=== PATIENT | female | born 2000 | race Caucasian/White ===

== ENCOUNTER 2020-08-22 23:50 | Emergency (ER) | payer OTHER, SELFPAY ==
[2020-08-23] VITALS: BP 127/72; PULSE 84; RESP 18; TEMP 36.4; O2SAT 100
--- NOTE | 2020-08-23 00:41 | PC.NURSE ---
pt states she doesn't want to wait anymore. this rn assured pt that we would get her back as soon as we possibly can if she wants to stay, pt still wants to leave. this rn informs pt that she can return if she needs to.
== END 2020-08-23 00:45 | disposition left against medical advice (07) ==
PROVIDERS: PCP Hospitalist
DX: S31.41XA Laceration without foreign body of vagina and vulva, initial encounter (principal)
CPT/HCPCS: 99199

== ENCOUNTER 2021-03-31 09:05 | Emergency (ER) | payer OTHER, MEDICAID, SELFPAY ==
[2021-03-31 09:13] VITALS: BP 140/69; PULSE 97; RESP 20; TEMP 37.1; O2SAT 98
--- NOTE | 2021-03-31 09:31 | ED.URI ---
HPI - URI/Sore Throat General Chief Complaint: Upper Respiratory Infection Stated Complaint: Sore Throat Time Seen by Provider: 03/31/21 09:32 Source: patient Mode of arrival: ambulatory Limitations: no limitations History of Present Illness HPI Narrative: patient presents with sore throat. no trouble swallowing and no drooling. Patient also complains of a headache and some nasal congestion. Patient was immunized for COVID-19 in October. 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 Patient went to work this morning and was instructed by her employer to come to [facility] to be tested for strep. and covid MD elicited complaint: sore throat, rhinorrhea and nasal congestion Related Data Allergies Allergy/AdvReac Type Severity Reaction Status Date / Time No Known Drug Allergies Allergy Unknown Verified 10/21/16 16:29 Review of Systems Review of Systems: Narrative: CONSTITUTIONAL: Denies chills, or sweats. Reports fever and generalized body aches EYES: Denies visual changes, redness, or discharge. ENT: Denies otalgia. Reports nasal congestion runny nose and sore throat CARDIOVASCULAR: Denies chest pain, palpitations, or edema. RESPIRATORY: Denies dyspnea. Reports occasional cough GASTROINTESTINAL: Denies abdominal pain, nausea, vomiting, or diarrhea. GENITOURINARY: Denies dysuria or hematuria. SKIN: Denies rash or itching. MUSCULOSKELETAL: Denies back pain, joint pain, or myalgia. Reports generalized body aches NEUROLOGIC: Denies headache, numbness, or weakness. PSYCHIATRIC: Denies anxiety or depression. [facility] Social History Social History Gender identity (if verbalized by the patient): Female Comments At time of signature, agree with nursing past medical, surgical, social and family history. There is no relevant family history pertinent to the presenting complaint Exam Narrative: Exam Narrative: The patient is a well-developed, well-nourished in no acute distress. SKIN: Skin is warm and dry without erythema, swelling or exudate. There is good turgor. No tenting. HEAD: Atraumatic. Normocephalic. No temporal or scalp tenderness. EYES: Moist and bright. Sclera and conjunctivae normal. No discharge. PERRLA. Extraocular motions intact. Gross visual acuity intact. EARS: Pinna is normal shape and contour. Clear external auditory canals. TM pearly grace with good cone of light, no erythema or suppuration. Bilateral cerumen noted no gross hearing deficit. NOSE: pink, moist mucosa with good air movement. Clear rhinorrhea without nasal flaring. Septum midline. Mouth: moist mucous membranes. THROAT; mild erythema noted to posterior oropharynx with moderate postnasal drainage. Without exudate or ulceration.. Uvula midline. Normal movement of soft palate. NECK: Supple and nontender with full range of motion without discomfort. No meningeal signs. LUNGS: Equal and bilateral breath sounds without wheezes, rales or rhonchi. CHEST: The chest wall is without retractions or use of accessory muscles. HEART: Has a regular rate and rhythm without murmur, gallops, click or rub. ABDOMEN: Soft, nontender with positive active bowel sounds. No rebound tenderness. EXTREMITIES: Without cyanosis, clubbing or edema. Equal 2+ distal pulses and 2 second capillary refill noted. NEUROLOGIC: alert, active, . The patient moves all extremities with normal muscle strength. Normal muscle tone is noted. Normal coordination is noted. NO focal neurological findings noted. Course Vital Signs Vital signs: Vital Signs Temperature 37.1 C 03/31/21 09:13 Pulse Rate 97 03/31/21 09:13 Respiratory Rate 20 03/31/21 09:13 Blood Pressure 140/69 03/31/21 09:13 Pulse Oximetry 98 03/31/21 09:13 Temperature 37.1 C 03/31/21 09:13 Pulse Rate 97 03/31/21 09:13 Respiratory Rate 20 03/31/21 09:13 Blood Pressure 140/69 03/31/21 09:13 Pulse Oximetry 98 03/31/21 09:13 Please RAINA schedule a followup visit with your personal physician for further ev
== END 2021-03-31 10:05 | disposition home or self-care (01) ==
PROVIDERS: Emergency Provider Nurse Practitioner Family; PCP Hospitalist
DX: J06.9 Acute upper respiratory infection, unspecified (principal); Z20.822 Contact with and (suspected) exposure to COVID-19; K21.9 Gastro-esophageal reflux disease without esophagitis
CPT/HCPCS: 87081; 87426; 87880; 99213; C9803; G0463

== ENCOUNTER 2021-08-04 12:55 | Emergency (ER) | payer OTHER, BC, SELFPAY ==
[2021-08-04 13:15] VITALS: BP 123/72; PULSE 93; RESP 16; TEMP 36.6; O2SAT 100
--- NOTE | 2021-08-04 13:35 | ED.URI ---
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 No fever measured, significant cough, loss of taste/smell, CP, vomiting/diarrhea, S OB, rash. Symptoms mild mild worse upon awakening the morning Related Data Home Medications Medication Instructions Recorded Confirmed Hydroxyzine Compound 08/04/21 sertraline 100 mg PO DAILY 08/04/21 08/04/21 Allergies Allergy/AdvReac Type Severity Reaction Status Date / Time No Known Drug Allergies Allergy Unknown Verified 10/21/16 16:29 Review of Systems Review of Systems: General/Constitutional: No weight loss,fever Eyes: N0: Redness,discharge Ears/Nose/Throat: No: Epistaxis,ear discharge Respiratory: Denies: Hemoptysis Gastrointestinal: No Vomiting, Bleeding-rectal Skin: No Lumps, eruption Neurologic: No Focal Weakness,Sz Hematologic: Denies: Petechiae/Purpura Psychiatric: No: Suicida ideationl All Other Systems: Reviewed and Negative PMFSH Social History Social History Gender identity (if verbalized by the patient): Female Comments At time of signature, agree with nursing past medical, surgical, social and family history. There is no relevant family history pertinent to the presenting complaint Exam Narrative: General Appearance: Well appearing, Well nourished EYE: PERRLA, Conjunctiva clear Ears: Auditory canal normal, TM normal Nose: Rhinorrhea, Mucousal erythema Mouth/Throat: MM moist, Uvula midline, Pharyngeal erythema Neck: Supple, No adenopathy Respiratory: No respiratory distress, Breath sounds equal, Clear to auscultation Cardiovascular: RRR, No JVD Musculoskeletal: Non tender, Normal strength Skin: Warm, Dry Neurological: A&O x3, CN II-XII intact Psychiatric: Normal mood, Normal affect Course Vital Signs Vital signs: Vital Signs Temperature 98 F 08/04/21 13:15 Pulse Rate 93 08/04/21 13:15 Respiratory Rate 16 08/04/21 13:15 Blood Pressure 123/72 08/04/21 13:15 Pulse Oximetry 100 08/04/21 13:15 Temperature 98 F 08/04/21 13:15 Pulse Rate 93 08/04/21 13:15 Respiratory Rate 16 08/04/21 13:15 Blood Pressure 123/72 08/04/21 13:15 Pulse Oximetry 100 08/04/21 13:15 Discharge Plan Discharge Clinical Impression: Sinus headache Patient Disposition: Home, Self-Care Condition: Stable Instructions: Antibiotic Form Additional Instructions: You may continue OTC preparations like Flonase, honey-based cough syrups, etc. Prescriptions: New azithromycin 250 mg tablet See Rx Instructions .ROUTE .COMPLEX Qty: 6 RF: 0 benzonatate [Tessalon Perles] 100 mg capsule 100 mg PO TID Qty: 20 RF: 1 azelastine 137 mcg (0.1 %) aerosol,spray 137 mcg NASAL Q12H Qty: 30 RF: 0 No Action fluticasone propionate [Flonase Allergy Relief] 50 mcg/actuation spray,suspension 2 spray NASAL BID Qty: 9.9 RF: 0 sertraline 100 mg tablet 100 mg PO DAILY RF: 0 Hydroxyzine Compound RF: 0 Follow-up/Referrals: Jcarlos,MD Sohail [Primary Care Provider] - Stand Alone Forms: Work/School Release IP
== END 2021-08-04 13:52 | disposition home or self-care (01) ==
PROVIDERS: Emergency Provider Emergency Medicine; PCP Hospitalist
DX: R51.9 Headache, unspecified (principal); K21.9 Gastro-esophageal reflux disease without esophagitis; F41.9 Anxiety disorder, unspecified; F32.A Depression, unspecified; F12.20 Cannabis dependence, uncomplicated
CPT/HCPCS: 99213; G0463

== ENCOUNTER 2022-04-04 16:03 | Emergency (ER) | payer OTHER, SELFPAY ==
--- NOTE | ~2022-04-04 | XR_ITS ---
EXAMINATION: XR wrist RT min 3V INDICATION: Right wrist pain, initial encounter TECHNIQUE: Four views of the right wrist are obtained. COMPARISON: None available FINDINGS: There is a subtle triangular ossification projecting dorsal to the distal carpal row on the lateral view. There is soft tissue swelling of the wrist. IMPRESSION: 1. Probable dorsal fracture of the distal carpal row seen on the lateral view. Reviewed, dictated and finalized at location A.
[2022-04-04 16:15] VITALS: BP 124/80; PULSE 94; RESP 16; TEMP 36.9; O2SAT 99
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
== END 2022-04-04 17:55 | disposition home or self-care (01) ==
PROVIDERS: Emergency Provider Registered Nurse; PCP Hospitalist
DX: S62.101A Fracture of unspecified carpal bone, right wrist, initial encounter for closed fracture (principal); V43.52XA Car driver injured in collision with other type car in traffic accident, initial encounter; K21.9 Gastro-esophageal reflux disease without esophagitis; F41.9 Anxiety disorder, unspecified; F32.A Depression, unspecified
CPT/HCPCS: 29125; 73110; 99214; G0463

== ENCOUNTER 2022-11-09 08:43 | Emergency (ER) | payer OTHER, SELFPAY ==
[2022-11-09 08:56] VITALS: BP 130/70; PULSE 86; RESP 16; TEMP 36.8; O2SAT 98
--- NOTE | 2022-11-09 09:25 | ED.SKABFB ---
HPI - Skin/Abscess/Foreign Bdy General Chief complaint: Skin/Abscess/Foreign Body Stated complaint: rash on back of neck Time Seen by Provider: 11/09/22 09:25 Source: patient Mode of arrival: ambulatory Limitations: no limitations History of Present Illness HPI narrative: 22 y/o female presented for c/o red itchy rash to the back of neck, right side of of face and right forearm spreading over the past few days. States it is bumpy, nontender. Denies change to lotions, soap, detergent or meds etc. Reports sensitivity to chemicals/detergents and makes her own detergents at home for 2 years. Applying benadryl cream to site and took Benadryl yesterday. Denies sob, wheezing, lip/tongue or throat swelling or itching. Denies n/v/d/f/c. Related Data Home Medications Medication Instructions Recorded Confirmed sertraline 100 mg tablet 200 mg PO DAILY 08/04/21 11/09/22 linaclotide 72 mcg capsule 72 mcg PO DAILY 11/09/22 11/09/22 (Linzess) Allergies Allergy/AdvReac Type Severity Reaction Status Date / Time No Known Drug Allergies Allergy Unknown Unknown Verified 11/09/22 09:08 Review of Systems Review of Systems: CONSTITUTIONAL: Denies body aches, fever, chills, or sweats. EYES: Denies visual changes, redness, or discharge. ENT: Denies rhinorrhea, congestion CARDIOVASCULAR: Denies chest pain, palpitations, or edema. RESPIRATORY: Denies cough or dyspnea. GASTROINTESTINAL: Denies abdominal pain, nausea, vomiting, or diarrhea. SKIN: per HPI MUSCULOSKELETAL: Denies back pain, joint pain, or myalgia. NEUROLOGIC: Denies headache, numbness, tingling, or weakness. [facility] Past Medical History Medical History Anxiety and depression Fx clavicle surgical repair GERD (gastroesophageal reflux disease) Surgical History Surgical History Hx of shoulder surgery Left S/P tendon repair left foot Social History Social History Smoking status: Never smoker Alcohol intake: current Alcohol use details: social Substance use type: does not use Living arrangements: with family Gender identity (if verbalized by the patient): Female Comments At time of signature, I have reviewed and agree with nursing past medical, surgical, social and family history unless otherwise noted. Please see nursing chart for further information. There is no relevant family history pertinent to the presenting complaint Exam Narrative: GENERAL: Well-appearing HEAD: Normocephalic, atraumatic. EYES: conjunctivae clear, and EOMI. ENT: Mucous membranes moist. Oropharynx without edema, erythema or lesions. NECK: Supple. No lymphadenopathy CHEST: Clear to auscultation. HEART: Regular rate and rhythm. SKIN: Warm, dry. Erythematous papular lesions to posterior neck, right face and right forearm, c/w contact dermatitis; no apparent vesicles or pain with palpation. NEURO: Alert and oriented x3. Course Course Emergency Course: Patient is aware of diagnosis, understands and agrees to treatment plan. Anticipatory guidance given. Patient agrees to follow-up as directed and is aware of reasons to seek care at the emergency department. Portions of this record may have been created with voice recognition software Level of Care: Express Care Visit Vital Signs Vital signs: Vital Signs Temperature 98.2 F 11/09/22 08:56 Pulse Rate 86 11/09/22 08:56 Respiratory Rate 16 11/09/22 08:56 Blood Pressure 130/70 11/09/22 08:56 Pulse Oximetry 98 11/09/22 08:56 Oxygen Delivery Room Air 11/09/22 08:56 Temperature 98.2 F 11/09/22 08:56 Pulse Rate 86 11/09/22 08:56 Respiratory Rate 16 11/09/22 08:56 Blood Pressure 130/70 11/09/22 08:56 Pulse Oximetry 98 11/09/22 08:56 Oxygen Delivery Room Air 11/09/22 08:56 Reviewed MDM - Skin/Abscess/Foreign
--- NOTE | 2022-11-10 11:32 | ED.SKABFB ---
HPI - Skin/Abscess/Foreign Bdy General Chief complaint: Skin/Abscess/Foreign Body Stated complaint: rash on back of neck Time Seen by Provider: 11/09/22 09:25 Source: patient Mode of arrival: ambulatory Limitations: no limitations History of Present Illness HPI narrative: 22 y/o female presented for c/o rash starting on posterior neck, spreading to right side of face and right forearm over the last 2 days. Reports itching, denies pain or drainage. Denies changes to lotions, soap, detergent or meds. States she has been making her own detergent for 2 years due to skin sensitivity. Using benadryl cream and took benadryl last night. Denies sob, wheezing, lip or tongue swelling, throat swelling or itching. Related Data Home Medications Medication Instructions Recorded Confirmed sertraline 100 mg tablet 200 mg PO DAILY 08/04/21 11/09/22 linaclotide 72 mcg capsule 72 mcg PO DAILY 11/09/22 11/09/22 (Linzess) Allergies Allergy/AdvReac Type Severity Reaction Status Date / Time No Known Drug Allergies Allergy Unknown Unknown Verified 11/09/22 09:08 Review of Systems Review of Systems: CONSTITUTIONAL: Denies body aches, fever, chills, or sweats. EYES: Denies visual changes, redness, or discharge. ENT: Denies rhinorrhea, congestion CARDIOVASCULAR: Denies chest pain, palpitations, or edema. RESPIRATORY: Denies cough or dyspnea. GASTROINTESTINAL: Denies abdominal pain, nausea, vomiting, or diarrhea. SKIN: per HPI MUSCULOSKELETAL: Denies back pain, joint pain, or myalgia. NEUROLOGIC: Denies headache, numbness, tingling, or weakness. [facility] Past Medical History Medical History Anxiety and depression Fx clavicle surgical repair GERD (gastroesophageal reflux disease) Surgical History Surgical History Hx of shoulder surgery Left S/P tendon repair left foot Social History Social History Smoking status: Never smoker Alcohol intake: current Alcohol use details: social Substance use type: does not use Living arrangements: with family Gender identity (if verbalized by the patient): Female Comments At time of signature, I have reviewed and agree with nursing past medical, surgical, social and family history unless otherwise noted. Please see nursing chart for further information. There is no relevant family history pertinent to the presenting complaint Exam Narrative: GENERAL: Well-appearing HEAD: Normocephalic, atraumatic. EYES: conjunctivae clear, and EOMI. ENT: Mucous membranes moist. Oropharynx without edema, erythema or lesions. NECK: Supple. No lymphadenopathy CHEST: Clear to auscultation. HEART: Regular rate and rhythm. SKIN: Warm, dry. Erythematous papular rash to posterior neck, right side of face and right distal forearm c/w contact dermatitis; nontender lesions no drainage NEURO: Alert and oriented x3. Course Course Emergency Course: Patient is aware of diagnosis, understands and agrees to treatment plan. Anticipatory guidance given. Patient agrees to follow-up as directed and is aware of reasons to seek care at the emergency department. Portions of this record may have been created with voice recognition software Level of Care: Express Care Visit Vital Signs Vital signs: Vital Signs Temperature 98.2 F 11/09/22 08:56 Pulse Rate 86 11/09/22 08:56 Respiratory Rate 16 11/09/22 08:56 Blood Pressure 130/70 11/09/22 08:56 Pulse Oximetry 98 11/09/22 08:56 Oxygen Delivery Room Air 11/09/22 08:56 Temperature 98.2 F 11/09/22 08:56 Pulse Rate 86 11/09/22 08:56 Respiratory Rate 16 11/09/22 08:56 Blood Pressure 130/70 11/09/22 08:56 Pulse Oximetry 98 11/09/22 08:56 Oxygen Delivery Room Air 11/09/22 08:56 Reviewed MDM - Skin/Abscess/Foreign Bdy MDM Narrative Medical d
== END 2022-11-09 09:40 | disposition home or self-care (01) ==
PROVIDERS: Emergency Provider Nurse Practitioner Family; PCP Hospitalist
DX: L30.9 Dermatitis, unspecified (principal); F41.9 Anxiety disorder, unspecified; F32.A Depression, unspecified; K21.9 Gastro-esophageal reflux disease without esophagitis
CPT/HCPCS: 99213; G0463

== ENCOUNTER 2023-02-07 11:57 | Outpatient (CLI) | payer OTHER, MEDICAID, SELFPAY ==
--- NOTE | ~2023-02-07 | XR_ITS ---
EXAMINATION: XR abdomen/kub 1V DATE: 02/07/2023 12:08 INDICATION: Constipation, unspecified. TECHNIQUE: A supine view of the abdomen on 2 radiographs was obtained. COMPARISON: None. FINDINGS: There are no dilated loops of bowel. There is a moderate volume of stool in the colon. IMPRESSION: 1. Nonobstructive bowel gas pattern. Reviewed, dictated and finalized at location A.
== END 2023-02-07 11:58 | disposition home or self-care (01) ==
LOC: ANHBWCIMG 11:58
PROVIDERS: PCP Family Medicine; Visit Provider Nurse Practitioner
DX: K59.00 Constipation, unspecified (principal)
CPT/HCPCS: 74018

== ENCOUNTER 2023-02-09 09:33 | Emergency (ER) | payer OTHER, MEDICAID, SELFPAY ==
--- NOTE | ~2023-02-09 | XR_ITS ---
EXAMINATION: XR abdomen obstructive series DATE: 02/09/2023 10:30 INDICATION: Constipation. TECHNIQUE: Upright and supine views of the abdomen were obtained. COMPARISON: Abdomen radiographs 02/07/2023 FINDINGS: There are no dilated loops of bowel. There is a moderate volume of stool in the colon. No f ree intraperitoneal gas. IMPRESSION: 1. Nonobstructive bowel gas pattern. Reviewed, dictated and finalized at location A.
[2023-02-09 09:42] VITALS: BP 129/76; PULSE 86; RESP 16; TEMP 36.4; O2SAT 99
--- NOTE | 2023-02-09 10:00 | ED.GENADULT ---
HPI - General Adult General Chief complaint: Unspecified Stated complaint: CONSTIPATION Time Seen by Provider: 02/09/23 09:50 History of Present Illness HPI narrative: Patient is a 22-year-old female here for evaluation of constipation x12 days. Patient states that she has a history of IBS-C has dealt with constipation her entire adult life, but states she has never gone this long without having a bowel movement. She had small pebble-like stools past this morning but she still feels full and uncomfortable. She denies any pain in her abdomen, nausea, vomiting, fevers or chills. She saw her primary care doctor 3 days ago, had x-rays that were negative. Related Data Home Medications Medication Instructions Recorded Confirmed sertraline 100 mg tablet 200 mg PO DAILY 08/04/21 02/07/23 Hydroxyzine BYMOUTH 12/21/22 02/07/23 Allergies Allergy/AdvReac Type Severity Reaction Status Date / Time No Known Drug Allergies Allergy Unknown Unknown Verified 02/09/23 09:33 Review of Systems Review of Systems: Gen.: Denies fevers or chills Eyes: Denies eye pain or visual change ENT: Denies congestion Respiratory: Denies shortness of breath or cough CV: Denies chest pain or palpitations GI: Reports constipation. Denies abdominal pain nausea, emesis or diarrhea denies burning, urgency, frequency or hematuria Musculoskeletal: Denies back pain or muscle pain Neuro: Denies numbness, tingling, weakness or focal weakness Skin: Denies rash Except as documented, all other systems reviewed and negative PMF Past Medical History Medical History Anxiety and depression Fx clavicle surgical repair GERD (gastroesophageal reflux disease) Surgical History Surgical History Hx of shoulder surgery Left S/P tendon repair left foot Family History Family History Father History of ETOH abuse Depression Mother History of ETOH abuse Depression Diabetes mellitus Sibling Depression Grandparent Diabetes mellitus Depression Grandparent History of ETOH abuse Depression Social History Social History Smoking status: Never smoker Alcohol intake: current Alcohol use details: social Substance use type: does not use Lack of Transportation: No Lack of Food: Never True Current Housing: I Have Housing Concerned About Future Housing: No Difficulty Paying Gas/Electric Bills: No Difficulty Paying for Meds: No Currently Unemployed: No Education: High School Diploma/GED Difficulty w/ Childcare or Family Care: No Living arrangements: with family Occupation/Education: occupation 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 Head: Normocephalic and atraumatic. EYES: PERRLA/EOMI, conjunctivae clear NOSE: No nasal drainage EARS: External ear normal in appearance THROAT: Oropharynx is clear. Mucous membranes are moist. NECK: Supple. No adenopathy, no masses. RESPIRATORY: Airway patent, respirations nonlabored. Clear to auscultation bilaterally, no rales, rhonchi, wheezing. CARDIOVASCULAR: Regular rate and rhythm without murmurs, rubs, or gallops. ABDOMINAL: Normoactive bowel sounds. Soft, nontender, nondistended. No rebound tenderness or guarding. : There is a anal fissure at the 3 o'clock position that is bleeding bright red blood. MUSCULOSKELETAL: Extremities are warm and well-perfused. Moves all extremities well. No edema. NEURO: Normal speech. No focal neurologic deficits. SKIN: Skin is warm and dry. No rashes. PSYCHIATRIC: Normal affect/mood.. Course Vital Signs Vi
[2023-02-09] MEDS: polyethylene glycoL 3350 17 GM POWD.PACK PO (10:25)
[2023-02-09] MEDS: MAGNESIUM HYDROXIDE SUSP 30 ML UDC PO (10:25)
[2023-02-09] MEDS: BISACODYL 10 MG SUPPOSITORY RECTAL (10:25)
== END 2023-02-09 11:28 | disposition home or self-care (01) ==
PROVIDERS: Emergency Provider Physician Assistant; PCP Family Medicine
DX: K58.1 Irritable bowel syndrome with constipation (principal); F41.9 Anxiety disorder, unspecified; F32.A Depression, unspecified; K21.9 Gastro-esophageal reflux disease without esophagitis
CPT/HCPCS: 74019; 81025; 99283; A9270

== ENCOUNTER 2023-02-22 08:12 | Outpatient (CLI) | payer OTHER, MEDICAID, SELFPAY ==
[2023-02-22 19:35] LABS: Hematocrit 41.8 % (37.0-47.0); Hemoglobin 13.6 g/dL (12.0-15.0); Mean Corpuscular HGB Conc 32.5 g/dl (32-36); Mean Corpuscular Hemoglobin 31.1 pg (26-34); Mean Corpuscular Volume 95.4 fl (80-100); Mean Platelet Volume 11.5 fl (7.4-10.4); Platelet Count Result 215 k/mm3 (150-375); Red Blood Count 4.38 M/mm3 (4.2-5.4); Red Cell Distribution Width 13.3 % (11.5-14.5); White Blood Count 6.2 K/mm3 (4.5-10.0)
[2023-02-22 20:16] LABS: Erythrocyte Sedimentation Rate 15 mm/hr (0-20)
[2023-02-22 20:35] LABS: Alanine Aminotransferase 18 U/L (6-35); Albumin Level 4.1 g/dL (3.5-5.1); Alkaline Phosphatase 53 U/L (38-126); Anion Gap 5 mmol/L (8-16); Aspartate Amino Transferase 44 U/L (14-36); Bilirubin,Total 0.5 mg/dL (0.2-1.3); Blood Urea Nitrogen 9 mg/dL (7-17); Calcium 8.9 mg/dL (8.4-10.2); Carbon Dioxide 28 mmol/L (22-30); Chloride 106 mmol/L (98-107); Cholesterol 190 mg/dL (0-200); Estimated Glomerular Filt Rate > 60; Glucose 79 mg/dL (65-110); HDL Direct 40 mg/dL; Sodium 139 mmol/L (137-145); Triglycerides 92 mg/dL (<150)
[2023-02-22 20:37] LABS: CRP 0.6 mg/dL (<1.0)
[2023-02-22 20:46] LABS: LDL Cholesterol Direct 121 mg/dL
== END 2023-02-22 08:13 | disposition home or self-care (01) ==
PROVIDERS: Nurse Practitioner; PCP Family Medicine; Visit Provider Family Medicine
DX: Z00.00 Encounter for general adult medical examination without abnormal findings (principal); K59.00 Constipation, unspecified; T78.40XA Allergy, unspecified, initial encounter
CPT/HCPCS: 36415; 80053; 80061; 85027; 85652; 86038; 86140

== ENCOUNTER 2023-06-28 15:21 | Outpatient (CLI) | payer OTHER, MEDICAID, SELFPAY ==
--- NOTE | ~2023-06-28 | XR_ITS ---
XR_[id number] DATE: 06/28/2023 15:28 INDICATION: Infrapatellar right knee pain for 3 days. Fall. TECHNIQUE: AP and lateral views COMPARISON: None FINDINGS: Mild suprapatellar knee joint effusion is not excluded. No fracture or dislocation, periosteal reaction or bone destruction, radiopaque intra-articular loose body or, calcinosis. Joint spaces appear well preserved. IMPRESSION: Cannot exclude mild suprapatellar knee joint effusion; otherwise unremarkable examination Reviewed, dictated and finalized at [facility]. Reviewed, dictated and finalized at location [facility]. IMPRESSION: Cannot exclude mild suprapatellar knee joint effusion; otherwise un remarkable examination
== END 2023-06-28 15:22 | disposition home or self-care (01) ==
LOC: ANHBWCIMG 15:23
PROVIDERS: PCP Nurse Practitioner Adult Health; Visit Provider Nurse Practitioner Adult Health
DX: M25.561 Pain in right knee (principal)
CPT/HCPCS: 73560

== ENCOUNTER 2023-09-17 13:41 | Emergency (ER) | payer OTHER, MEDICAID, SELFPAY ==
[2023-09-17 13:48] VITALS: BP 141/74; PULSE 122; RESP 18; TEMP 36.9; O2SAT 97
--- NOTE | 2023-09-17 14:13 | ED.URI ---
HPI - URI/Sore Throat General Chief Complaint: Upper Respiratory Infection Stated Complaint: Sore Throat/Ear Pain/Cough History of Present Illness HPI Narrative: PATIENT PRESENTS WITH FEVER GENERALIZED BODY ACHES. PATIENT REPORTS SORE THROAT DENIES ANY TROUBLE SWALLOWING NO DROOLING. PATIENT DID A HOME COVID TEST LAST WEEK WHICH WAS NEGATIVE. Related Data Home Medications Medication Instructions Recorded Confirmed linaclotide 145 mcg capsule 145 mcg PO DAILY 09/17/23 09/17/23 (Linzess) Allergies Allergy/AdvReac Type Severity Reaction Status Date / Time No Known Drug Allergies Allergy Unknown Unknown Verified 09/17/23 14:17 Review of Systems Review of Systems: CONSTITUTIONAL: DENIES CHILLS, OR SWEATS. REPORTS FEVER AND GENERALIZED BODY ACHES EYES: DENIES VISUAL CHANGES, REDNESS, OR DISCHARGE. ENT: DENIES OTALGIA. REPORTS NASAL CONGESTION RUNNY NOSE AND SORE THROAT CARDIOVASCULAR: DENIES CHEST PAIN, PALPITATIONS, OR EDEMA. RESPIRATORY: DENIES DYSPNEA. REPORTS OCCASIONAL COUGH GASTROINTESTINAL: DENIES ABDOMINAL PAIN, NAUSEA, VOMITING, OR DIARRHEA. GENITOURINARY: DENIES DYSURIA OR HEMATURIA. SKIN: DENIES RASH OR ITCHING. MUSCULOSKELETAL: DENIES BACK PAIN, JOINT PAIN, OR MYALGIA. REPORTS GENERALIZED BODY ACHES NEUROLOGIC: DENIES HEADACHE, NUMBNESS, OR WEAKNESS. PSYCHIATRIC: DENIES ANXIETY OR DEPRESSION. [facility]LY [facility] Past Medical History Medical History Anxiety and depression Fx clavicle surgical repair GERD (gastroesophageal reflux disease) Surgical History Surgical History Hx of shoulder surgery Left S/P tendon repair left foot Family History Family History Father History of ETOH abuse Depression Mother History of ETOH abuse Depression Diabetes mellitus Sibling Depression Grandparent Diabetes mellitus Depression Grandparent History of ETOH abuse Depression Social History Social History Smoking status: Never smoker Alcohol intake: current Alcohol use details: social Substance use type: does not use Lack of Transportation: No Lack of Food: Never True Current Housing: I Have Housing Concerned About Future Housing: No Difficulty Paying Gas/Electric Bills: No Difficulty Paying for Meds: No Currently Unemployed: No Education: High School Diploma/GED Difficulty w/ Childcare or Family Care: No Living arrangements: with family Occupation/Education: occupation 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 THERE IS NO RELEVANT FAMILY HISTORY PERTINENT TO THE PRESENTING COMPLAINT Exam Narrative: THE PATIENT IS A WELL-DEVELOPED, WELL-NOURISHED IN NO ACUTE DISTRESS. SKIN: SKIN IS WARM AND DRY WITHOUT ERYTHEMA, SWELLING OR EXUDATE. THERE IS GOOD TURGOR. NO TENTING. HEAD: ATRAUMATIC. NORMOCEPHALIC. NO TEMPORAL OR SCALP TENDERNESS. EYES: MOIST AND BRIGHT. SCLERA AND CONJUNCTIVAE NORMAL. NO DISCHARGE. PERRLA. EXTRAOCULAR MOTIONS INTACT. GROSS VISUAL ACUITY INTACT. EARS: PINNA IS NORMAL SHAPE AND CONTOUR. CLEAR EXTERNAL AUDITORY CANALS. TM PEARLY WILSON WITH GOOD CONE OF LIGHT, NO ERYTHEMA OR SUPPURATION. BILATERAL CERUMEN NOTED NO GROSS HEARING DEFICIT. NOSE: PINK, MOIST MUCOSA WITH GOOD AIR MOVEMENT. CLEAR RHINORRHEA WITHOUT NASAL FLARING. SEPTUM MIDLINE. MOUTH: MOIST MUCOUS MEMBRANES. THROAT; MILD ERYTHEMA NOTED TO POSTERIOR OROPHARYNX WITH MODERATE POSTNASAL DRAINAGE. WITHOUT EXUDATE OR ULCERATION.. UVULA MIDLINE. NORMAL MOVEMENT OF SOFT PALATE. NECK: SUPPLE AND NONTENDER WITH FULL RANGE OF MOTION WITHOUT DISCOMFORT. N
== END 2023-09-17 14:25 | disposition home or self-care (01) ==
PROVIDERS: Emergency Provider Nurse Practitioner Family; PCP Family Medicine
DX: J10.1 Influenza due to other identified influenza virus with other respiratory manifestations (principal); B34.9 Viral infection, unspecified; Z20.822 Contact with and (suspected) exposure to COVID-19; K21.9 Gastro-esophageal reflux disease without esophagitis; F41.9 Anxiety disorder, unspecified; F32.A Depression, unspecified
CPT/HCPCS: 87081; 87426; 87804; 87880; 99213; C9803; G0463

== ENCOUNTER 2024-01-18 15:02 | Outpatient (CLI) | payer BC, OTHER, SELFPAY ==
[2024-01-18 18:38] LABS: Hematocrit 41.2 % (37.0-47.0); Hemoglobin 13.7 g/dL (12.0-15.0); Mean Corpuscular HGB Conc 33.3 g/dl (32-36); Mean Corpuscular Hemoglobin 30.9 pg (26-34); Mean Platelet Volume 11.3 fl (7.4-10.4); Platelet Count Result 227 k/mm3 (150-375); Red Blood Count 4.43 M/mm3 (4.2-5.4); Red Cell Distribution Width 12.5 % (11.5-14.5); White Blood Count 8.3 K/mm3 (4.5-10.0)
[2024-01-18 19:23] LABS: Alanine Aminotransferase 19 U/L (6-35); Albumin Level 4.5 g/dL (3.5-5.1); Alkaline Phosphatase 63 U/L (38-126); Anion Gap 6 mmol/L (4-12); Aspartate Amino Transferase 33 U/L (14-36); Bilirubin,Total 0.5 mg/dL (0.2-1.3); Blood Urea Nitrogen 8 mg/dL (7-17); Calcium 9.7 mg/dL (8.4-10.2); Carbon Dioxide 29 mmol/L (22-30); Chloride 103 mmol/L (98-107); Estimated Glomerular Filt Rate > 60; Glucose 82 mg/dL (65-110); Potassium 4.2 mmol/L (3.4-5.0); Sodium 138 mmol/L (137-145)
[2024-01-18 20:05] LABS: Free T4 Free Thyroxine 1.01 ng/mL (0.78-2.19)
[2024-01-18 22:02] LABS: Hemoglobin A1C 4.9 % (<5.7)
== END 2024-01-18 15:03 | disposition home or self-care (01) ==
PROVIDERS: PCP Nurse Practitioner Adult Health; Visit Provider Nurse Practitioner Adult Health
DX: R42 Dizziness and giddiness (principal); R63.1 Polydipsia
CPT/HCPCS: 36415; 80053; 83036; 84439; 84443; 85027

== ENCOUNTER 2025-06-30 15:30 | Outpatient (CLI) | payer BC, OTHER, SELFPAY ==
--- OUTSIDE RECORDS SUMMARY | 2025-06-30 15:36 | XMS_ITS | Clinical Summary ---
Author Organization [facility] Address [address], [place] [address] Phone Care Team Providers Care Valet Cashier Name Role Phone Fabian Tucker DPM Unavailable [phone] Sohail Garber MD Primary Care Provider [phone] Allergies No known active allergies Medications melatonin 3 MG Tablet Take 10 mg by mouth nightly. Active hydrOXYzine (ATARAX) 25 MG Tablet Take 25 mg by mouth 2 times daily. 0 Active cetirizine (ZyrTEC Allergy) 10 MG Tablet Take 10 mg by mouth daily. Active sertraline (ZOLOFT) 100 MG Tablet Take 100 mg by mouth daily. 1 Active ondansetron (ZOFRAN-ODT) 4 MG TABLET DISPERSIBLEIndicati ons:Nausea and vomiting, intractability of vomiting not specified, unspecified vomiting type,Gastroenteriti s Take 1 Tablet by mouth every 8 hours as needed for Nausea - 1st line. 10 Tablet 1 Active Active Problems Problem Noted Date Diagnosed Date Sinus tarsitis 11/28/2016 Pain in left foot 11/09/2016 Synovitis of left foot 11/09/2016 Generalized anxiety disorder 08/10/2016 Separation anxiety disorder 08/10/2016 Obsessive compulsive disorder 08/10/2016 Social anxiety disorder 08/10/2016 Mechanical complication of internal orthopedic d evice 03/14/2016 Congenital pes planus of left foot 12/04/2015 Accessory navicular bone of left foot 11/04/2015 Tibialis posterior tendonitis 11/04/2015 Gastrocnemius equinus of left lower extremity Resolved Problems Problem Noted Date Diagnosed Date Resolved Date Adjustment disorder with mix ed anxiety and depressed mood 06/25/2016 08/10/2016 Family History Medical History Relation Name Comments No Known Problems Brother Diabetes Maternal Grandmother anxiety and depression, medication prescribed Diabetes Mother Mental Disorder, Other Mother anxie ty and depression, medication prescribed Relation Name Status Comments Brother Father Alive Maternal Grandfather Alive Maternal Grandmother Alive Mother Alive Paternal Grandfather Paternal Grandmother Alive Social History Tobacco Use Types Packs/Day Years Used Date Smoking Tobacco: Never Smokeless Tobacco: Never Tobacco Cessation:Counseling Given: Not Answered Alcohol Use Standard Drinks/Week Comments No 0 (1 standard drink = 0.6 oz pur e alcohol) PHQ-2 Answer Date Recorded Total Score - Questions 1-9 1 05/10 Education Answer Date Recorded What is the highest level of school you have completed or the highest degree you have received? 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 Not on file Not on roby e Last Filed Vital Signs Vital Sign Reading Time Taken Comments Blood Pressure 120/78 10/13/2022 12:45 PM FORENSIC AUDIT EXPERT Pulse 75 10/13/2022 12:45 PM FORENSIC AUDIT EXPERT Temperature 36.4 C (97.6 F) 10/13/2022 11:46 AM FORENSIC AUDIT EXPERT Respiratory Rate 16 10/13/2022 11:46 AM FORENSIC AUDIT EXPERT Oxygen Saturation 100% 10/13/2022 12:45 PM FORENSIC AUDIT EXPERT Inhaled Oxygen Concentration - - Weight 122.5 kg (270 lb) 10/13/2022 11:46 AM FORENSIC AUDIT EXPERT Height 190.5 cm (6' 3) 10/13/2022 11:46 AM FORENSIC AUDIT EXPERT Body Mass Index 33.75 10/13/2022 11:46 AM FORENSIC AUDIT EXPERT Plan of Treatment Health Maintenance Due Date Last Done Comments Hepatitis C Virus (HCV) Screening 2000 Human Papillomavirus (HPV) Immunization (1 - 3-dose series) 2015 Influenza Immunization (#1) 06/09/202508/09, 07/08/2020, 07/08/2020, Additional history exists SARS-COV-2 Immunization ( - 2024- season) 2025 08/25/2021, 11/25/2020, 10/28/2020 Respiratory Syncytial Virus (RSV) Immunization (Adult) (1 - 1-dose 75+ series) 2075 Hepatitis B Immunization Completed 001, 2000, 2000 Pneumococcal Immunization Combined Aged Out 06/20/2001, 2000, 2000, Additional history exists No longer eligible based on patient's age to complete this topic DTaP/Tdap/Td Immunization Discontinued 2011, 06/10/2005, 09/26/2001, Additional history exists TdaP Immunization Completed 03/08/2012 Meningococcal Immunization (ACWY) Completed 03/27/2017, 03/08/2012 Rotavirus Immunization Aged Out No lo nger eligible based on patient's age to complete this topic Goals Goal Patient Goal Type Associated Problems Recent Progress Patient-Stated? Author Behavioral Health Behavioral Health On track(2019 7:36 PM CDT) Yes Digna Slaughter LCPC Note: Maisey reported: desires to cope, manage and/or discontinue panic attacks. Goal Reviewed with: patient Readiness to change: Thinking about making a change Department associated with goal: [facility] Steps to achieve goal: Antoinettey to attend, at least twice monthly, counseling sessions. Maisey to identify, verbalize and process at least three contributing factors/triggers to panic attacks, ex: traumatic experiences. Maisey to identify and verbalize at least three actions/skills to prevent and/or cope with panic attacks. Maisey to put into action, at least one time weekly, for one month, an action/skill to prevent and or cope with panic attacks. Behavioral Health Behavioral Health On track(2019 7:36 PM CDT) No Digna Slaughter LCPC Note: Flash reported desire to go back home and not be afraid I'm dying; (recent heart rate concern resulted in emergency room care and currently on heart monitor, staying with mother). Goal Reviewed with: patient Readiness to change: Thinking about making a change Department associated with goal: [facility] Steps to achieve goal: Flash will continue to follow through with medical recommendations and follow up care, ex: wearing heart monitor, appointments with bankruptcy legal assistant. Flash will verbalize and process thoughts and feelings regarding recent medical trauma and panic attacks to gain relief and build insight. Flash will learn and practice positive counter-thoughts, to replace cognitive distortions/errors in thinking. Medical Devices Implanted Type Area Rn Telephone Triage Device Identifier Shelf Expiration Date Model / Serial / Lot Hyprocure Sinus Tarsi Stent Size 06 Implanted:Qty: 1 on 12/04/2015 by Fabian Tucker DPM at [facility] Left: Foot 08/30/2020 [id number] / [id number] / [id number] Suture [place] 3.5x12.1 Implanted:Qty: 1 on 12/04/2015 by Fabian Tucker DPM at [facility] Left: Foot 11/08/2018 [id number] / / [id number] [place] [address] [facility] Care Teams Valet Cashier Relationship Specialty Start Date End Date Sohail Garber MD [address] [place] [address] PCP - General Family Medicine 08/23/20 Fabian Tucker DPM Podiatry 12/04/15
--- OUTSIDE RECORDS SUMMARY | 2025-06-30 15:37 | XMS_ITS | Clinical Summary ---
Author Organization [facility] Address [address] [place] [id number] Care Team Providers Care Quiller Machine Fixer Name Role Phone Vera Cornejo Primary Care Provider [phone] Allergies Active Allergy Reactions Criticality Noted Date Comments Seasonal Unknown 11/24/2015 SEASONAL ALLERGIES Medications cetirizine 10 MG tablet Take 10 mg by mouth daily. Active fluticasone propionate 50 MCG/ACT nasal spray 03/31/2021 Active melatonin 3 MG tablet Take 10 mg by mouth nightly at bedtime. Active BUSPIRONE 15 MG tabletIndicatio ns:Social anxiety disorder TAKE 1 TABLET BY MOUTH 2 TIMES DAILY. 180 tablet 11/20/2021 Active valACYclovir 500 MG tabletIndicatio ns:Fever blister Take 1 tablet (500 mg total) by mouth 2 (two) times daily. 60 tablet 11/29/2021 Active Active Problems Problem Noted Date Diagnosed Date Lung nodule < 6cm on CT 10/15/2021 Overview (10/29/2021): Last Assessment & Plan: Stable, noted incidentally on CT imaging; given age and no other risk factors, will evaluated patient needs repeat imaging in approximately 1 year Will continue to monitor for other pulmonary symptoms Class 2 obesity due to exces s calories without serious comorbidity with body mass index (BMI) of 37.0 to 37.9 in adult 02/17/2021 Overview (10/29/2021): Last Assessment & Plan: Stable, improving; patient is making dietary changes, met with Nutrition And expressed great addition of knowledge Patient is an limiting changes to diet Will continue to monitor weight Chronic constipation 08/05/2020 Overview (10/29/2021): Since age 3 Last Assessment & Plan: Patient reports some improvement, has bowel movements every other day, reports pain with bowel movements as well as some blood with wiping Patient is currently taking MiraLax and morning, taking fiber supplement, drinking at least 3 quarts of water per day Encouraged patient to continue with good fluid intake, use of stool softeners If no improvement, will refer to GI for possible colonoscopy Left upper quadrant pain 07/08/2020 Overview (10/29/2021): Last Assessment & Plan: Not well controlled, patient has history of chronic constipation; now with chronic diarrhea Infectious labs were negative Patient scheduled for colonoscopy in follows with GI Continue Linzess 72 mcg daily Palpitations 07/02/2020 GERD without esophagitis 05/13/2020 Overview (10/29/2021): Last Assessment & Plan: Patient reports that she has had symptoms for 1 year, however over the past 2 weeks has had worsening symptoms including sensation of food being stuck in throat which improves with drinking water Patient recognizes foods which trigger acid reflux, and avoids those foods as part of her diet Today will start pantoprazole to help relieve symptoms, the patient continues to have dysphagia in 2 weeks will refer to GI for potential EGD Will encourage patient to continue with dietary restrictions, daily PPI and weight loss Other chest pain 05/13/2020 PSVT (paroxysmal supraventricular tachycardia) ( [facility]) 05/13/2020 Tachycardia 05/13/2020 Sinus tarsitis 11/28/2016 Pain in left foot 11/09/2016 Synovitis of left foot 11/09/2016 Separation anxiety disorder 08/10/2016 Overview (10/29/2021): Chronic, with panic attack Last Assessment & Plan: Not well controlled, patient continues to have episodes of panic attack; at this point as; phobia; may be related to new undiagnosed medical conditions Will start bupropion today, continue to use hydroxyzine 25 mg as needed Continue sertraline 200 mg daily patient referred to counseling for further evaluation and talk therapy Social anxiety disorder 08/10/2016 Mechanical complication of internal orthopedic d evice 03/14/2016 Congenital pes planus of left foot 12/04/2015 Accessory navicular bone of left foot 11/04/2015 Gastrocnemius equinus of left lower extremity Tibialis posterior tendonitis 11/04/2015 Chronic headache 06/25/2014 Migraine headache without aura 06/25/2014 Immunizations Immunization Administration Dates Next Due Dtap (Acel-Immune) 06/10/2005, 1,2000,10/09,2000 Hepatitis A (Havrix 1440 El.U) 03/20/2014 Hepatitis A (Havrix 720 El.U) 03/08/2012 Hepatitis B Pediatric 03/28/2001,2000,03/2000 Hib (Generic) 09/26/2001, 1,2000,04/2000 Influenza (Generic) 08/25/2021,07/09/2019 Influenza Adult (Generic) 07/08/2020 MENINGOCOCCAL A C Y&W-135 oligosaccharide (MENVEO) 03/27/2017,03/08/2012 MMR (MMRII) 06/10/2005,06/20/2001 Pneumococcal (Prevnar 7) 06/20/2001,04/2001,2000,04/2000 Polio IPV (Ipol) 06/10/2005, 1,2000,04/2000 Tdap (Generic) 03/08/2012 Varicella (Varivax) 03/08/2012,09/26/2001 Family History Medical History Relation Comments None Father Diabetes Mother Relation Status Comments Father Alive Mother Alive Social History Tobacco Use Types Packs/Day Years Used Date Smoking Tobacco: Never Smokeless Tobacco: Never Tobacco Cessation:Counseling Given: No Comments:non smoker Alcohol Use Standard Drinks/Week Comments Never 0 (1 standard drink = 0.6 oz pur e alcohol) PHQ-2 Answer Date Recorded PHQ-2 Score - If the patient scores above 3, please move on to questions 3-9 5 10/29/2021 Comments No Sex and Gender Information Value Date Recorded Sex Assigned at Not on file Legal Sex Female 10:19 AM SHANK PAPERER Gender Identity Not on file Sexual Orientation Not on file Last Filed Vital Signs Vital Sign Reading Time Taken Comments Blood Pressure 100/70 10/29/2021 8:21 AM SHANK PAPERER Pulse 87 10/29/2021 8:21 AM SHANK PAPERER Temperature 36.7 C (98 F) 10/29/2021 8:21 AM SHANK PAPERER Respiratory Rate 15 10/29/2021 8:21 AM SHANK PAPERER Oxygen Saturation 97% 10/29/2021 8:21 AM SHANK PAPERER Inhaled Oxygen Concentration - - Weight 145.2 kg (320 lb) 10/29/2021 8:21 AM SHANK PAPERER Height 190.5 cm (6' 3) 10/29/2021 8:21 AM SHANK PAPERER Body Mass Index 40 10/29/2021 8:21 AM SHANK PAPERER Plan of Treatment Health Maintenance Due Date Last Done Comments Cervical Cancer Screening Pap Smear (Age 21 to 29) Every 3 Years 2000 Cervical Cancer Screening 2000 Annual Physical 2003 HPV Vaccines (1 - 3-dose series) 2015 Hepatitis C 2018 DTaP, Tdap and Td Vaccines (7 - Td or Tdap) 03/08/2022 03/08/2012, 06/10/2005, 09/26/2001, Additional history exists COVID-19 Vaccine ( season) 2025 08/25/2021, 11/25/2020, 10/28/2020 Hepatitis B Vaccines Completed 03/28/2001, 2000, 2000 Pneumococcal Vaccine: Pediatrics (0 to 5 Years) and At-Risk Patients (6 to 49 Years) Aged Out 06/20/2001, 2000, 2000, Additional history exists No longer eligible based on patient's age to complete this topic Meningococcal Vaccine Completed 03/27/2017, 012 Meningococcal B Vaccine Aged Out No l onger eligible based on patient's age to complete this topic RSV Immunizations Under 20 Months Aged Out No longer eligible based on patient's age to complete this topic Insurance [employer] OPEN ACCESS [facility] Care Teams Quiller Machine Fixer Relationship Specialty [place] [address] [place] [address] PCP - General PHYSICIAN DIRECTOR ZONE 10/29/21
--- OUTSIDE RECORDS SUMMARY | 2025-06-30 15:37 | XMS_ITS | Clinical Summary ---
Author Organization [facility] 8 [facility] Address [address] [place] [address] Care Team Providers Care Litharge Mill Operator Name Role Phone Sohail Garber MD Primary Care Provider [phone] Allergies Active Allergy Reactions Criticality Noted Date Comments Other Unknown 11/24/2015 SEASONAL ALLERGIES SEASONAL ALLERGIES Medications hydrOXYzine (ATARAX) 25 mg tablet Take 1 tablet (25 mg total) by mouth 2 (two) times a day 60 tablet 0 Active polyethylene glycol (GoLYTELY) 236-22.74-6.74 -5.86 gram solution Mix Golytely with water and begin drinking at 4pm and finish all solution by midnight day before procedure 4000 mL 1 Active bisacodyl EC (DULCOLAX EC) 5 mg EC tabletIndicatio ns:constipation Take 4 tablets at 7 pm the night before procedure 4 tablet 1 Active buPROPion XL (WELLBUTRIN XL) 150 mg 24 hr tabletIndicatio ns:Anxiety with Depression Take 1 tablet (150 mg total) by mouth every morning 90 tablet 1 2 Active busPIRone (BUSPAR) 15 mg tablet Take 1 tablet (15 mg total) by mouth 2 (two) times a day 2 Active fluticasone propionate (FLONASE) 50 mcg/actuation nasal spray 1 Active valACYclovir (VALTREX) 500 mg tablet Take 1 tablet (500 mg total) by mouth 2 (two) times a day 2 Active venlafaxine XR (EFFEXOR-XR) 37.5 mg 24 hr capsule TAKE 1 CAPSULE BY MOUTH EVERY DAY IN THE MORNING FOR 7 DAYS 2 Active venlafaxine XR (EFFEXOR-XR) 75 mg 24 hr capsule Take 1 capsule (75 mg total) by mouth every morning 2 Active meloxicam (MOBIC) 15 mg tablet Take 1 tablet (15 mg total) by mouth daily 30 tablet 1 2 Active linaCLOtide (Linzess) 72 mcg capsule Take 1 capsule (72 mcg total) by mouth daily 90 capsule 2 2 Active sertraline (ZOLOFT) 100 mg tablet Take 2 tablets (200 mg total) by mouth daily 140 tablet 3 Active Active Problems Problem Noted Date Diagnosed Date Lung nodule < 6cm on CT 10/15/2021 Assessment & Plan (10/15/2021 9:10 AM CIGAR PATCHER): Stable, noted incidentally on CT imaging; given age and no other risk factors, will evaluated patient needs repeat imaging in approximately 1 year Will continue to monitor for other pulmonary symptoms Class 2 obesity due to exces s calories without serious comorbidity with body mass index (BMI) of 37.0 to 37.9 in adult 02/17/2021 Assessment & Plan (10/15/2021 9:12 AM CIGAR PATCHER): Stable, improving; patient is making dietary changes, met with Nutrition And expressed great addition of knowledge Patient is an limiting changes to diet Will continue to monitor weight Assessment & Plan (10/12/2021 2:43 PM CIGAR PATCHER): Stable, has been working on dietary changes, cutting down on soda sweets and is gluten products Small amounts of exercise, walks approximately 18,000 steps at work Continue to encourage dietary and activity changes Assessment & Plan (02/17/2021 9:24 AM CDT): Patient reports she has started to work on eating clean, but has no other strategy Patient has been to walk for 30 minutes per day encouraged patient to start working on calorie restriction through portion control as well as continue with her daily walks [employer] is to get to moderate intensity exercise with elevated rate during her walk Will continue to encourage weight loss, patient continues to have difficulty will refer to Nutrition for better guidance and food choices Chronic constipation 08/05/2020 Overview (08/05/2020): Since age 3 Assessment & Plan (02/17/2021 9:22 AM CDT): Patient reports some improvement, has bowel movements every other day, reports pain with bowel movements as well as some blood with wiping Patient is currently taking MiraLax and morning, taking fiber supplement, drinking at least 3 quarts of water per day Encouraged patient to continue with good fluid intake, use of stool softeners If no improvement, will refer to GI for possible colonoscopy Assessment & Plan (10/12/2020 12:59 PM CIGAR PATCHER): Daily BM on arising for the first 2 weeks of diet and miralax but then holidays altered her bowel function and she tended back to constipation. Advised increase miralax as needed and return prn. Assessment & Plan (09/11/2020 2:18 PM CIGAR PATCHER): Constipation since 3yo. Long discussion idiopathic constipation in young females and will try hi fiber diet with miralax, sit on toilet after btreakfast and return with shit list in 4 weeks. Assessment & Plan (08/05/2020 9:47 AM CDT): Not well controlled, patient has to regularly use stool softeners in order to have bowel movements Differential includes functional constipation, dilation of rectal vault, IBS constipation predominant Discussed with patient daily use of stool softener to target for daily bowel movements for bowel retraining Will get x-ray of abdomen to evaluate for any dilation or stool burden Referral to GI to evaluate for need of colonoscopy given chronic constipation since age 3 Left upper quadrant pain 07/08/2020 Assessment & Plan (10/15/2021 9:12 AM CIGAR PATCHER): Not well controlled, patient has history of chronic constipation; now with chronic diarrhea Infectious labs were negative Patient scheduled for colonoscopy in follows with GI Continue Linzess 72 mcg daily Assessment & Plan (07/08/2020 10:31 AM CDT): Unknown etiology may be related to GERD or peptic ulcer disease, the patient has no evidence of gastric bleeding Patient previously diagnosed with constipation, however while patient has infrequent bowel movements she does have regular movements that do not require straining, does not appear to meet Giovany IV criteria for constipation Encourage high-fiber diet and high fluid intake in order to increase frequency of bowel movement Given patient has mild pain to palpation in right upper quadrant as well will check hepatic panel Palpitations 07/02/2020 PSVT (paroxysmal supraventricular tachycardia) 0 05/13/2020 Tachycardia 05/13/2020 Other chest pain 05/13/2020 GERD without esophagitis 05/13/2020 Assessment & Plan (02/17/2021 9:22 AM CDT): Patient reports that she has had symptoms [...] dietary restrictions, daily PPI and weight loss Assessment & Plan (07/08/2020 10:27 AM CDT): Patient reports new onset of heartburn and reflux disease Patient reports travel outside the [place] No relief with omeprazole or esomeprazole [id number] medication Will give trial of 1 month of pantoprazole 40 mg b.i.d. If no improvement consider testing for H pylori and referral to GI Counseling provided regarding dietary changes and weight loss Sinus tarsitis 11/28/2016 Pain in left foot 11/09/2016 Synovitis of left foot 11/09/2016 Generalized anxiety disorder 08/10/2016 Overview (07/08/2020): Chronic, with panic attack Assessment & Plan (10/15/2021 9:11 AM CIGAR PATCHER): Not well controlled, patient continues to have episodes of panic attack; at this point as; phobia; may be related to new undiagnosed medical conditions Will start bupropion today, continue to use hydroxyzine 25 mg as needed Continue sertraline 200 mg daily patient referred to counseling for further evaluation and talk therapy Assessment & Plan (10/12/2021 2:44 PM CIGAR PATCHER): Stable, well controlled; continue sertraline 200 mg daily, continues to have difficulty with motivation and fatigue at home Given excessive daytime sleepiness, and high stopping score, will refer to Sleep Medicine Assessment & Plan (03/17/2021 10:03 AM CDT): Not well controlled, patient reports worsening symptoms and increased number panic attacks Patient reports that she has been using hydroxyzine to 3 times per week, but dislikes use given it sedate Cerner Will increase sertraline to 200 mg daily, continue hydroxyzine p.r.n. Encouraged patient to start counseling Will work on other treatments if incomplete response to sertraline 200 mg Assessment & Plan (01/06/2021 9:20 AM CDT): Well controlled on current medications; no recent panic attacks; continue with Sertraline 100 mg Assessment & Plan (08/05/2020 9:43 AM CDT): Patient reports symptoms are improved after starting sertraline Patient reports single panic attack in last month, well controlled using hydroxyzine Patient does report recent changes to sleep, may be unrelated to medication Will continue to monitor insomnia and portions consider changing medications Assessment & Plan (07/08/2020 10:26 AM CDT): Patient reports recent increase in anxiety and new onset of panic attacks over past 2-3 months Patient reports panic attacks are more frequent with menses, but may occur at any time during the month Patient has multiple stressors at home, and is seeing counselor at outside agents Patient reports recently restarting fluoxetine but does not feel full resolution of symptoms Will transition to sertraline to help reduce anxiety Prescription for hydroxyzine p.r.n. for panic attack Obsessive compulsive disorder 08/10/2016 Separation anxiety disorder 08/10/2016 Overview (04/06/2022): Chronic, with panic attack Last Assessment & [...] headache 06/25/2014 Migraine headache without aura 06/25/2014 Resolved Problems Problem Noted Date Diagnosed Date Resolved Date Anxiety 05/13/2020 08/05/2020 Medication side effects 05/13/202007/10 Immunizations Immunization Administration Dates Next Due DTaP 06/10/2005, 1,2000,10/18,2000 Hep A, Adult 03/20/2014 Hep A, Pediatric 03/08/2012 Hep B, Adolescent or Pediatric 03/28/2001,1999,2000 HiB 09/26/2001, 1,2000,08/15 IPV 06/10/2005, 1,2000,08/15 Influenza, Quadrivalent, Spl it, Preservative Free, Intramuscular 07/08/2020 Influenza, Unspecified 08/25/2021,2020(Deferred: Patient Refused),10/09/2020(Deferred: Patient Refused),07/09/2019 MMR 06/10/2005,06/20/2001 Meningococcal Conjugate (Menveo) 03/27/2017,0510/2011 Moderna SARS-CoV-2 Monovalen t Vaccination (12+ YRS) 08/25/2021,11/25/2020,10/28/2020 Pneumococcal Conjugate 7-Valent 06/20/20,2000,2000,08/15 Tdap 03/08/2012 Varicella 03/08/2012,09/26/2001 Surgical History Surgery Date Site/Laterality Comments FOOT SURGERY Medical History Medical History Date Comments Migraines Chest pain Family History Medical History Relation Name Comments Colon cancer Maternal Grandfather Depression Maternal Grandfather Diabetes Maternal Grandmother Heart disease Maternal Grandmother Diabetes Mother Depression Paternal Grandfather Relation Name Status Comments Father Alive Maternal Grandfather Maternal Grandmother Mother Alive Paternal Grandfather Social History Tobacco Use Types Packs/Day Years Used Date Smoking Tobacco: Every Day Vaping Smokeless Tobacco: Never Tobacco Cessation:Ready to Q uit: Yes; Counseling Given: Yes Alcohol Use Standard Drinks/Week Comments No 0 (1 standard drink = 0.6 oz pur e alcohol) AUDIT-C Answer Date Recorded Q1: How often do you have a drink containing alc ohol? Never 10/22/2021 Average Number of Drinks Not on file 022 Frequency of Binge Drinking Not on file 10/09 PHQ-2 Answer Date Recorded PHQ-2 Total Score (If total score is 3 or more points, staff should administer the PHQ-9) 2 10/15/2021 Comments No Sex and Gender Information Value Date Recorded Sex Assigned at Not on file Legal Sex Female 1:12 PM CIGAR PATCHER Gender Identity Not on file Sexual Orientation Not on file Obstetrics History Last Filed Vital Signs Vital Sign Reading Time Taken Comments Blood Pressure 118/80 12/21/2024 11:31 AM CDT Pulse 86 12/21/2024 11:31 AM CDT Temperature 36.6 C (97.8 F) 12/21/2024 11:31 AM CDT Respiratory Rate 16 12/21/2024 11:31 AM CDT Oxygen Saturation 98% 12/21/2024 11:31 AM CDT Inhaled Oxygen Concentration - - Weight 117.9 kg (260 lb) 12/21/2024 11:31 AM CDT Height 190.5 cm (6' 3) 12/21/2024 11:31 AM CDT Body Mass Index 32.5 12/21/2024 11:31 AM CDT Plan of Treatment Health Maintenance Due Date Last Done Comments Cervical Cancer Screening 2000 Hepatitis C Screening 2000 Pneumococcal vaccine <65 (1 of 1 - PPSV23, PCV20, or PCV21) 2006 06/20/2001, 2000, 2000, Additional history exists HPV Vaccines (1 - 3-dose series) 2015 Regular Well Visit/Exam 18-64 2018 DTaP/Tdap/Td Vaccine (7 - Td or Tdap) 03/08/2022 03/08/2012, 06/10/2005, 09/26/2001, Additional history exists Depression Screening 10/15/2022 10/15/2021, 10/04/2021, 09/17/2021, Additional history exists Covid-19 Vaccine ( - 2024-2 6 season) 2025 08/25/2021, 11/25/2020, 10/28/2020 Influenza Vaccine (#1) 2025 , 07/08/2020, 07/09/2019 Hepatitis B Screening Completed 03/28/2001 , 2000, 2000 Varicella Vaccines Completed 03/08/2012, 09/26/2001 Insurance [employer] [facility] [id number] [facility] [id number] ID[facility] Care Teams Litharge Mill Operator Relationship Specialty Start Date End Date Sohail Garber MD [address] [place] [address] PCP - General Family Medicine 07/08/20
--- OUTSIDE RECORDS SUMMARY | 2025-06-30 15:37 | XMS_ITS | Patient Health Record ---
Author Organization [facility] As [employer] Address [address] [place] [address] Care Team Providers Care Front End Mechanic Name Role Phone Fanta Tyler Unavailable [phone] Reason For Referral No Information Medications Medication SIG (Take, Route, Frequency, Duration) Notes Start Date End Date Status Meloxicam 15 MG Tablet Oral 01/13/2022 Active Sertraline HCl 100 MG Tablet Oral 01/13/2022 Active Pantoprazole Sodium 40 MG Tablet Delayed Release Oral 01/13/2022 Activ e methylPREDNISolone 4 MG Tablet Therapy Pack Oral 01/13/2022 Active Linzess 145 MCG Capsule Oral 01/13/2022 Active Venlafaxine HCl ER 75 MG Capsule Extended Release 24 Hour Oral 01/13/2022 Active Azithromycin 500 MG Tablet Oral 01/13/2022 Active Linzess 72 mcg Capsule Oral 01/13/2022 Active Amoxicillin 500 MG Tablet Oral 01/13/2022 Active ID Now COVID-19 Kit In Vitro *Reorder [facility] for eRx and Interaction Alerts* 01/13/2022 Active hydrOXYzine HCl 25 MG Tablet Oral 01/13/2022 Active Immunizations Vaccine Route Administration Date Status Comme nts Moderna Covid-19 Vaccine 1st dose Unknown 10/28/2020 Ad ministered Moderna Covid-19 Vaccine 1st dose Unknown 11/25/2020 Ad ministered Moderna Covid-19 Vaccine 1st dose Unknown 08/25/2021 Ad ministered Social History Social History Additional Details Category Social Info Options Details Migrated Social History Migrated Social History Alcohol Intake: Occasional 01/13/2022,Tobacco Years: Never smoker 01/13/2022 Plan Of Treatment No Information Insurance Providers Payer Name Payer Address Payer Phone Subscriber Number Group Number Insured Name Patient Relationship to Insured Coverage Start Date Coverage End Date [facility] [address] [place] [address] [id number] ERICA SMART Child - Insured has Financial Responsibility
--- OUTSIDE RECORDS SUMMARY | 2025-06-30 15:37 | XMS_ITS | Encounter Summary ---
Author Organization [facility] Address [address] [place] [address] Care Team Providers Care Can Slider Name Role Phone Vera Cronejo Primary Care Provider [phone] Encounter Details Date Type Department Care Team (Late st Contact Info) Description 11/01/2021 Mitek Systemst Message Enc [facility] Family & Internal Medicine [facility] [address] [place] [address] Vera Cornejo [place] [id number] [place] [address] [phone] Question regarding LIPID PANEL Social History Tobacco Use Types Packs/Day Years Used Date Smoking Tobacco: Never Smokeless Tobacco: Never Comments:non smoker Alcohol Use Standard Drinks/Week Comments Never 0 (1 standard drink = 0.6 oz pur e alcohol) PHQ-2 Answer Date Recorded PHQ-2 Score - If the patient scores above 3, please move on to questions 3-9 5 10/29/2021 Comments No Sex and Gender Information Value Date Recorded Sex Assigned at Not on file Legal Sex Female 10:19 AM PERSONNEL MANAGER Gender Identity Not on file Sexual Orientation Not on file COVID-19 Exposure Response Date Recorded In the last month, have you been in contact with someone who was confirmed or suspected to have Coronavirus / COVID-19? No / Unsure 10/29/2021 8:12 AM PERSONNEL MANAGER documented as of this encounter Plan of Treatment Not on file documented as of this encounter Visit Diagnoses Not on filedocumented in this encounter Additional Health Concerns Assessment Noted Time PHQ-9 Depression Total Score: 14 022 9:31 AM PERSONNEL MANAGER documented as of this encounter Care Teams Can Slider Relationship Specialty [place] [address] [address] [place] [address] PCP - General PHYSICIAN MEAT GRADING MACHINE OPERATOR 10/29/21 documented as of this encounter
[2025-06-30 19:09] LABS: Add Urine Microscopic? YES; Appearance Urine Clear (Clear); Glucose Urine UA Negative (Negative); Leukocyte Esterase Ur Trace LEU/UL (Negative); Nitrate Urine Negative (Negative); Non Pathogenic Casts 0-2; Specific Grav Ur 1.024 (1.001-1.035)
== END 2025-06-30 15:31 | disposition home or self-care (01) ==
LOC: ANHBWCLAB 15:31
PROVIDERS: PCP Nurse Practitioner Adult Health; Visit Provider Nurse Practitioner Adult Health
DX: R39.9 Unspecified symptoms and signs involving the genitourinary system (principal)
CPT/HCPCS: 81001; 87086

== ENCOUNTER 2025-07-14 14:39 | Outpatient (CLI) | payer BC, OTHER, SELFPAY ==
--- OUTSIDE RECORDS SUMMARY | 2025-07-14 15:25 | XMS_ITS | Encounter Summary ---
Author Organization [facility] Address [address] [place] [address] Care Team Providers Care Engraver Seals Name Role Phone Vera Cornejo Primary Care Provider [phone] Encounter Details Date Type Department Care Team (Late st Contact Info) Description 11/01/2021 Bergt Message Enc [facility] Family & Internal Medicine [facility] [address] [place] [address] Vera Cornejo [place] [id number] [place] [address] [phone] Question regarding LIPID PANEL Social History Tobacco [...] on file Legal Sex Female 10:19 AM LABORER EGG PRODUCING FARM Gender Identity Not on file Sexual Orientation Not on file COVID-19 Exposure Response Date Recorded In the last month, have you been in contact with someone who was confirmed or suspected to have Coronavirus / COVID-19? No / Unsure 10/29/2021 8:12 AM LABORER EGG PRODUCING FARM documented as of this encounter Plan of Treatment Not on file documented as of this encounter Visit Diagnoses Not on filedocumented in this encounter Additional Health Concerns Assessment Noted Time PHQ-9 Depression Total Score: 14 022 9:31 AM LABORER EGG PRODUCING FARM documented as of this encounter Care Teams Engraver Seals Relationship Specialty [place] [address] [place] [address] PCP - General PHYSICIAN FORENSIC INVESTIGATOR 10/29/21 documented as of this encounter
--- OUTSIDE RECORDS SUMMARY | 2025-07-14 15:25 | XMS_ITS | Clinical Summary ---
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 Not on file Not on roby e Last Filed Vital Signs Vital Sign Reading Time Taken Comments Blood Pressure 120/78 10/13/2022 12:45 PM FILAMENT CUTTER Pulse 75 10/13/2022 12:45 PM FILAMENT CUTTER Temperature 36.4 C (97.6 F) 10/13/2022 11:46 AM FILAMENT CUTTER Respiratory Rate 16 10/13/2022 11:46 AM FILAMENT CUTTER Oxygen Saturation 100% 10/13/2022 12:45 PM FILAMENT CUTTER Inhaled Oxygen Concentration - - Weight 122.5 kg (270 lb) 10/13/2022 11:46 AM FILAMENT CUTTER Height 190.5 cm (6' 3) 10/13/2022 11:46 AM FILAMENT CUTTER Body Mass Index 33.75 10/13/2022 11:46 AM FILAMENT CUTTER Plan of Treatment Health Maintenance Due Date [...] making a change Department associated with goal: [facility] Steps to achieve [...] making a change Department associated with goal: [facility] Steps to achieve goal: Flash will continue to follow through with medical recommendations and follow up care, ex: wearing heart monitor, appointments with furnace operator oil or gas. Flash will verbalize and process thoughts and feelings regarding recent medical trauma and panic attacks to gain relief and build insight. Flash will learn and practice positive counter-thoughts, to replace cognitive distortions/errors in thinking. Medical Devices Implanted Type Area Canning Machine Operator Device Identifier Shelf Expiration Date Model / Serial / Lot Hyprocure Sinus Tarsi Stent Size 06 Implanted:Qty: 1 on 12/04/2015 by Fabian Tucker DPM at [facility] Left: Foot 08/30/2020 [id number] / [id number] / [id number] Suture [place] 3.5x12.1 Implanted:Qty: 1 on 12/04/2015 by Fabian Tucker DPM at [facility] Left: Foot 11/08/2018 [id number] / [id number] Insurance [place] [facility] Care Teams Ase Master Mechanic Relationship Specialty Start Date End Date Sohail Garber [place] [address] PCP - General Family Medicine 08/23/20 Fabian Tucker DPM Podiatry 12/04/15
--- OUTSIDE RECORDS SUMMARY | 2025-07-14 15:25 | XMS_ITS | Clinical Summary ---
Author Organization [facility] Address [address] [place] [address] Care Team Providers Care Locksmith Name Role Phone Vera Cornejo Primary Care Provider [phone] Allergies Active Allergy Reactions Criticality Noted Date [...] pain 05/13/2020 PSVT (paroxysmal supraventricular tachycardia) ( [facility]) 05/13/2020 Tachycardia 05/13/2020 Sinus tarsitis [...] on file Legal Sex Female 10:19 AM MAGNETIC GRINDER OPERATOR Gender Identity Not on file Sexual Orientation Not on file Last Filed Vital Signs Vital Sign Reading Time Taken Comments Blood Pressure 100/70 10/29/2021 8:21 AM MAGNETIC GRINDER OPERATOR Pulse 87 10/29/2021 8:21 AM MAGNETIC GRINDER OPERATOR Temperature 36.7 C (98 F) 10/29/2021 8:21 AM MAGNETIC GRINDER OPERATOR Respiratory Rate 15 10/29/2021 8:21 AM MAGNETIC GRINDER OPERATOR Oxygen Saturation 97% 10/29/2021 8:21 AM MAGNETIC GRINDER OPERATOR Inhaled Oxygen Concentration - - Weight 145.2 kg (320 lb) 10/29/2021 8:21 AM MAGNETIC GRINDER OPERATOR Height 190.5 cm (6' 3) 10/29/2021 8:21 AM MAGNETIC GRINDER OPERATOR Body Mass Index 40 10/29/2021 8:21 AM MAGNETIC GRINDER OPERATOR Plan of Treatment Health Maintenance Due Date [...] Vaccine ( season) 2025 08/25/2021, 11/25/2020, 10/28/2020 Influenza Adult (#1) 2025 08/25/2021, 07/08/2020, 07/09/2019 Hepatitis B Vaccines Completed 03/28/2001, 2000, 2000 [...] patient's age to complete this topic Insurance [employer] OPEN ACCESS [facility] Care Teams Locksmith Relationship Specialty [place] [address] [place] [address] PCP - General PHYSICIAN CYCLE DIRECTOR 10/29/21
--- OUTSIDE RECORDS SUMMARY | 2025-07-14 15:25 | XMS_ITS | Clinical Summary ---
Author Organization [facility] 8 [facility] Address [address] [place] [address] Care Team Providers Care Day Light Relief Operator Name Role Phone Sohail Garber MD Primary Care Provider [phone] Allergies Active Allergy Reactions Criticality Noted Date [...] 10/15/2021 Assessment & Plan (10/15/2021 9:10 AM MATERIAL CONTROLLER): Stable, noted incidentally on CT imaging; given age and no other risk factors, will evaluated patient needs repeat imaging in approximately 1 year Will continue to monitor for other pulmonary symptoms Class 2 obesity due to exces s calories without serious comorbidity with body mass index (BMI) of 37.0 to 37.9 in adult 02/17/2021 Assessment & Plan (10/15/2021 9:12 AM MATERIAL CONTROLLER): Stable, improving; patient is making dietary changes, met with Nutrition And expressed great addition of knowledge Patient is an limiting changes to diet Will continue to monitor weight Assessment & Plan (10/12/2021 2:43 PM MATERIAL CONTROLLER): Stable, has been working on dietary changes, [...] colonoscopy Assessment & Plan (10/12/2020 12:59 PM MATERIAL CONTROLLER): Daily BM on arising for the first 2 weeks of diet and miralax but then holidays altered her bowel function and she tended back to constipation. Advised increase miralax as needed and return prn. Assessment & Plan (09/11/2020 2:18 PM MATERIAL CONTROLLER): Constipation since 3yo. Long discussion idiopathic constipation [...] 07/08/2020 Assessment & Plan (10/15/2021 9:12 AM MATERIAL CONTROLLER): Not well controlled, patient has history of [...] countries No relief with omeprazole or esomeprazole [id number] medication Will give trial of 1 month of pantoprazole 40 mg b.i.d. If no improvement consider testing for H pylori and referral to GI Counseling provided regarding dietary changes and weight loss Sinus tarsitis 11/28/2016 Pain in left foot 11/09/2016 Synovitis of left foot 11/09/2016 Generalized anxiety disorder 08/10/2016 Overview (07/08/2020): Chronic, with panic attack Assessment & Plan (10/15/2021 9:11 AM MATERIAL CONTROLLER): Not well controlled, patient continues to have episodes of panic attack; at this point as; phobia; may be related to new undiagnosed medical conditions Will start bupropion today, continue to use hydroxyzine 25 mg as needed Continue sertraline 200 mg daily patient referred to counseling for further evaluation and talk therapy Assessment & Plan (10/12/2021 2:44 PM MATERIAL CONTROLLER): Stable, well controlled; continue sertraline 200 mg [...] on file Legal Sex Female 1:12 PM MATERIAL CONTROLLER Gender Identity Not on file Sexual Orientation [...] 2000 Varicella Vaccines Completed 03/08/2012, 09/26/2001 Insurance [facility] [id number] [facility] [id number] [employer]PA [facility] Member Subscriber Plan / Payer (Ef fective 2023-Present) Name:Flash Lewis L Relation to Subscriber:Self Name:Flash Lewis Payer ID:[id number] ([facility]) Type:HEALTHCARE/EXCHANGE Address: [place] [id number] [place] [id number] Care Teams Day Light Relief Operator Relationship Specialty Start Date End Date Sohail Garber MD [address] [place] [address] PCP - General Family Medicine 07/08/20
--- OUTSIDE RECORDS SUMMARY | 2025-07-14 15:25 | XMS_ITS | Patient Health Record ---
Author Organization [facility] [employer] Address [address] [place] [address] Care Team Providers Care Septic Tank Setter Name Role Phone Fanta Tyler Unavailable [phone] Reason For Referral No Information Medications Medication [...] ID Now COVID-19 Kit In Vitro *Reorder [facility] for eRx and Interaction Alerts* 01/13/2022 Active [...] Coverage End Date [facility] [address] [place] [address] [id number] ERICA SMART Child - Insured has Financial Responsibility
[2025-07-14 19:05] LABS: Add Urine Microscopic? YES; Appearance Urine Clear (Clear); Glucose Urine UA Negative (Negative); Leukocyte Esterase Ur Trace LEU/UL (Negative); Nitrate Urine Negative (Negative); Non Pathogenic Casts 0-2; Specific Grav Ur 1.005 (1.001-1.035)
== END 2025-07-14 14:40 | disposition home or self-care (01) ==
PROVIDERS: PCP Nurse Practitioner Adult Health; Visit Provider Nurse Practitioner Adult Health
DX: R39.9 Unspecified symptoms and signs involving the genitourinary system (principal)
CPT/HCPCS: 81001; 87086

== ENCOUNTER 2025-08-04 16:20 | Outpatient (CLI) | payer BC, OTHER, SELFPAY ==
--- OUTSIDE RECORDS SUMMARY | 2025-08-04 17:16 | XMS_ITS | Patient Health Record ---
Author Organization [facility] As [employer] Address [address] [place] [address] Care Team Providers Care Associate Chemist Name Role Phone Fanta Tyler Unavailable [phone] Reason For Referral No Information Medications Medication [...] ID Now COVID-19 Kit In Vitro *Reorder [facility] for eRx and Interaction Alerts* 01/13/2022 Active [...] Insured Coverage Start Date Coverage End Date [facility] [address] [place] [address] [id number] ERICA SMART Child - Insured has Financial Responsibility
--- OUTSIDE RECORDS SUMMARY | 2025-08-04 17:16 | XMS_ITS | Clinical Summary ---
Author Organization [facility] 8 [facility] Address [address] [place] [address] Care Team Providers Care Plate And Weld Inspector Name Role Phone Sohail Garber MD Primary Care Provider [phone] Allergies Active Allergy Reactions Criticality Noted Date [...] 10/15/2021 Assessment & Plan (10/15/2021 9:10 AM MASH FILTER PRESS OPERATOR): Stable, noted incidentally on CT imaging; given age and no other risk factors, will evaluated patient needs repeat imaging in approximately 1 year Will continue to monitor for other pulmonary symptoms Class 2 obesity due to exces s calories without serious comorbidity with body mass index (BMI) of 37.0 to 37.9 in adult 02/17/2021 Assessment & Plan (10/15/2021 9:12 AM MASH FILTER PRESS OPERATOR): Stable, improving; patient is making dietary changes, met with Nutrition And expressed great addition of knowledge Patient is an limiting changes to diet Will continue to monitor weight Assessment & Plan (10/12/2021 2:43 PM MASH FILTER PRESS OPERATOR): Stable, has been working on dietary changes, [...] colonoscopy Assessment & Plan (10/12/2020 12:59 PM MASH FILTER PRESS OPERATOR): Daily BM on arising for the first 2 weeks of diet and miralax but then holidays altered her bowel function and she tended back to constipation. Advised increase miralax as needed and return prn. Assessment & Plan (09/11/2020 2:18 PM MASH FILTER PRESS OPERATOR): Constipation since 3yo. Long discussion idiopathic constipation [...] 07/08/2020 Assessment & Plan (10/15/2021 9:12 AM MASH FILTER PRESS OPERATOR): Not well controlled, patient has history of [...] countries No relief with omeprazole or esomeprazole gvmb-tqo-xhohmcw medication Will give trial of 1 month of pantoprazole 40 mg b.i.d. If no improvement consider testing for H pylori and referral to GI Counseling provided regarding dietary changes and weight loss Sinus tarsitis 11/28/2016 Pain in left foot 11/09/2016 Synovitis of left foot 11/09/2016 Generalized anxiety disorder 08/10/2016 Overview (07/08/2020): Chronic, with panic attack Assessment & Plan (10/15/2021 9:11 AM MASH FILTER PRESS OPERATOR): Not well controlled, patient continues to have episodes of panic attack; at this point as; phobia; may be related to new undiagnosed medical conditions Will start bupropion today, continue to use hydroxyzine 25 mg as needed Continue sertraline 200 mg daily patient referred to counseling for further evaluation and talk therapy Assessment & Plan (10/12/2021 2:44 PM MASH FILTER PRESS OPERATOR): Stable, well controlled; continue sertraline 200 mg [...] on file Legal Sex Female 1:12 PM MASH FILTER PRESS OPERATOR Gender Identity Not on file Sexual [...] 2000 Varicella Vaccines Completed 03/08/2012, 09/26/2001 Insurance [place] [facility] [id number] [facility] [id number] [facility]PA [facility] Care Teams Plate And Weld Inspector Relationship Specialty Start Date End Date Sohail Garber MD [address] [place] [address] PCP - General Family Medicine 07/08/20
--- OUTSIDE RECORDS SUMMARY | 2025-08-04 17:16 | XMS_ITS | Clinical Summary ---
Author Organization [facility] Address [address] [place] [address] Care Team Providers Care Printing Plate Setter Name Role Phone Vera Cornejo Primary Care Provider [phone] Allergies Active Allergy Reactions Criticality Noted Date [...] chest pain 05/13/2020 PSVT (paroxysmal supraventricular tachycardia) 0 05/13/2020 Tachycardia 05/13/2020 Sinus tarsitis 11/28/2016 Pain [...] on file Legal Sex Female 10:19 AM SHEET METAL ENGINEER Gender Identity Not on file Sexual Orientation Not on file Last Filed Vital Signs Vital Sign Reading Time Taken Comments Blood Pressure 100/70 10/29/2021 8:21 AM SHEET METAL ENGINEER Pulse 87 10/29/2021 8:21 AM SHEET METAL ENGINEER Temperature 36.7 C (98 F) 10/29/2021 8:21 AM SHEET METAL ENGINEER Respiratory Rate 15 10/29/2021 8:21 AM SHEET METAL ENGINEER Oxygen Saturation 97% 10/29/2021 8:21 AM SHEET METAL ENGINEER Inhaled Oxygen Concentration - - Weight 145.2 kg (320 lb) 10/29/2021 8:21 AM SHEET METAL ENGINEER Height 190.5 cm (6' 3) 10/29/2021 8:21 AM SHEET METAL ENGINEER Body Mass Index 40 10/29/2021 8:21 AM SHEET METAL ENGINEER Plan of Treatment Health Maintenance Due Date [...] on patient's age to complete this topic Hepatitis A Vaccines Completed 03/20/2014, 03/08/20 12 Meningococcal Vaccine Completed 03/27/2017, 012 Meningococcal B Vaccine Aged Out No l onger eligible based on patient's age to complete this topic RSV Immunizations Under 20 Months Aged Out No longer eligible based on patient's age to complete this topic Insurance [employer] [facility] Care Teams Printing Plate Setter Relationship Specialty [place] [address] [place] [address] PCP - General PHYSICIAN RESIDENTIAL REMODELING SUBCONTRACTOR 10/29/21
--- OUTSIDE RECORDS SUMMARY | 2025-08-04 17:16 | XMS_ITS | Clinical Summary ---
Author Organization [facility] Address [address] [facility] 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 file Not on file Not on roby e Last Filed Vital Signs Vital Sign Reading Time Taken Comments Blood Pressure 120/78 10/13/2022 12:45 PM COMPUTER GAME DESIGNER Pulse 75 10/13/2022 12:45 PM COMPUTER GAME DESIGNER Temperature 36.4 C (97.6 F) 10/13/2022 11:46 AM COMPUTER GAME DESIGNER Respiratory Rate 16 10/13/2022 11:46 AM COMPUTER GAME DESIGNER Oxygen Saturation 100% 10/13/2022 12:45 PM COMPUTER GAME DESIGNER Inhaled Oxygen Concentration - - Weight 122.5 kg (270 lb) 10/13/2022 11:46 AM COMPUTER GAME DESIGNER Height 190.5 cm (6' 3) 10/13/2022 11:46 AM COMPUTER GAME DESIGNER Body Mass Index 33.75 10/13/2022 11:46 AM COMPUTER GAME DESIGNER Plan of Treatment Health Maintenance Due Date [...] making a change Department associated with goal: [facility] Steps to achieve goal: [...] making a change Department associated with goal: [facility] Steps to achieve goal: Flash will continue to follow through with medical recommendations and follow up care, ex: wearing heart monitor, appointments with windshield technician. lFash will verbalize and process thoughts and feelings regarding recent medical trauma and panic attacks to gain relief and build insight. Flash will learn and practice positive counter-thoughts, to replace cognitive distortions/errors in thinking. Medical Devices Implanted Type Area Retail Commission Sales Associate Device Identifier Shelf Expiration Date Model / Serial / Lot Hyprocure Sinus Tarsi Stent Size 06 Implanted:Qty: 1 on 12/04/2015 by Fabian Tucker DPM at [facility] Left: Foot 08/30/2020 [id number] / [id number] / [id number] Suture Boyce 3.5x12.1 Implanted:Qty: 1 on 12/04/2015 by Fabian Tucker DPM at [facility] Left: Foot 11/08/2018 [id number] / / [id number] Insurance [place] [facility] Care Teams Mobile Solutions Architect Relationship Specialty Start Date End Date Soh[place] [address] PCP - General Family Medicine 08/23/20 Fabian Tucker DPM Podiatry 12/04/15
--- OUTSIDE RECORDS SUMMARY | 2025-08-04 17:16 | XMS_ITS | Encounter Summary ---
Author Organization [facility] Address [address] [place] [address] Care Team Providers Care Grounds Manager Name Role Phone Vera Cornejo Primary Care Provider [phone] Encounter Details Date Type Department Care Team (Late st Contact Info) Description 11/01/2021 KienVet Message Enc [facility] Family & Internal Medicine [facility] [address] [place] [address] Vera Cornejo [place] [id number] [place] [address] [phone] Question regarding LIPID PANEL Social History Tobacco [...] on file Legal Sex Female 10:19 AM HIGH LIFT OPERATOR Gender Identity Not on file Sexual Orientation Not on file COVID-19 Exposure Response Date Recorded In the last month, have you been in contact with someone who was confirmed or suspected to have Coronavirus / COVID-19? No / Unsure 10/29/2021 8:12 AM HIGH LIFT OPERATOR documented as of this encounter Plan of Treatment Not on file documented as of this encounter Visit Diagnoses Not on filedocumented in this encounter Additional Health Concerns Assessment Noted Time PHQ-9 Depression Total Score: 14 022 9:31 AM HIGH LIFT OPERATOR documented as of this encounter Care Teams Grounds Manager Relationship Specialty [place] [address] [place] [address] PCP - General PHYSICIAN REPORT PROGRAMMER 10/29/21 documented as of this encounter
[2025-08-04 18:51] LABS: Add Urine Microscopic? YES; Appearance Urine Clear (Clear); Glucose Urine UA Negative (Negative); Leukocyte Esterase Ur Trace LEU/UL (Negative); Nitrate Urine Negative (Negative); Non Pathogenic Casts 0-2; Specific Grav Ur 1.014 (1.001-1.035)
== END 2025-08-04 16:21 | disposition home or self-care (01) ==
PROVIDERS: PCP Nurse Practitioner Adult Health; Visit Provider Nurse Practitioner Adult Health
DX: R39.9 Unspecified symptoms and signs involving the genitourinary system (principal)
CPT/HCPCS: 81001; 87086

== ENCOUNTER 2025-09-05 08:35 | Emergency (ER) | payer BC, OTHER, SELFPAY ==
--- NOTE | ~2025-09-05 | XR_ITS ---
EXAMINATION: XR chest 2V, 09/05/2025 9:05 TRAVELING ACCOUNTANT HISTORY: cough, chest congestion, SOB COMPARISON: No comparisons available. Technique: 2 views obtained. Findings: The lungs are clear, no effusion. No pneumothorax. Heart is normal size. Mediastinal and hilar contours are within normal limits. Bony thorax no acute abnormality. Impression: No acute cardiopulmonary abnormality. Reviewed, dictated and finalized at location P. ELING ACCOUNTANT Impression: No acute cardiopulmonary abnormality.
--- OUTSIDE RECORDS SUMMARY | 2025-09-05 08:37 | XMS_ITS | Encounter Summary ---
Author Organization [facility] Address [address] [place] [address] Care Team Providers Care Assistant Tennis Professional Name Role Phone Vera Cornejo Primary Care Provider [phone] Encounter Details Date Type Department Care Team (Late st Contact Info) Description 11/01/2021 PJD Groupt Message Enc [facility] Family & Internal Medicine [facility] [address] [place] [address] Vera [place]jo [place] [id number] [place] [address] [phone] Question regarding LIPID PANEL Social History Tobacco [...] on file Legal Sex Female 10:19 AM MOLD LOFT WORKER Gender Identity Not on file Sexual Orientation Not on file COVID-19 Exposure Response Date Recorded In the last month, have you been in contact with someone who was confirmed or suspected to have Coronavirus / COVID-19? No / Unsure 10/29/2021 8:12 AM MOLD LOFT WORKER documented as of this encounter Plan of Treatment Not on file documented as of this encounter Visit Diagnoses Not on filedocumented in this encounter Additional Health Concerns Assessment Noted Time PHQ-9 Depression Total Score: 14 022 9:31 AM MOLD LOFT WORKER documented as of this encounter Care Teams Assistant Tennis Professional Relationship Specialty [place] [address] [place] [address] PCP - General PHYSICIAN POLICE LIEUTENANT 10/29/21 documented as of this encounter
--- OUTSIDE RECORDS SUMMARY | 2025-09-05 08:37 | XMS_ITS | Clinical Summary ---
Author Organization [facility] 8 [facility] Address [address] [place] [address] Care Team Providers Care Seam Steamer Name Role Phone Sohail Garber MD Primary Care Provider [phone] Allergies Active Allergy Reactions Criticality Noted Date [...] 10/15/2021 Assessment & Plan (10/15/2021 9:10 AM PHARMACIST IN CHARGE OWNER): Stable, noted incidentally on CT imaging; given age and no other risk factors, will evaluated patient needs repeat imaging in approximately 1 year Will continue to monitor for other pulmonary symptoms Class 2 obesity due to exces s calories without serious comorbidity with body mass index (BMI) of 37.0 to 37.9 in adult 02/17/2021 Assessment & Plan (10/15/2021 9:12 AM PHARMACIST IN CHARGE OWNER): Stable, improving; patient is making dietary changes, met with Nutrition And expressed great addition of knowledge Patient is an limiting changes to diet Will continue to monitor weight Assessment & Plan (10/12/2021 2:43 PM PHARMACIST IN CHARGE OWNER): Stable, has been working on dietary changes, [...] colonoscopy Assessment & Plan (10/12/2020 12:59 PM PHARMACIST IN CHARGE OWNER): Daily BM on arising for the first 2 weeks of diet and miralax but then holidays altered her bowel function and she tended back to constipation. Advised increase miralax as needed and return prn. Assessment & Plan (09/11/2020 2:18 PM PHARMACIST IN CHARGE OWNER): Constipation since 3yo. Long discussion idiopathic constipation [...] 07/08/2020 Assessment & Plan (10/15/2021 9:12 AM PHARMACIST IN CHARGE OWNER): Not well controlled, patient has history of [...] countries No relief with omeprazole or esomeprazole qbnk-wln-qnonwoz medication Will give trial of 1 month of pantoprazole 40 mg b.i.d. If no improvement consider testing for H pylori and referral to GI Counseling provided regarding dietary changes and weight loss Sinus tarsitis 11/28/2016 Pain in left foot 11/09/2016 Synovitis of left foot 11/09/2016 Generalized anxiety disorder 08/10/2016 Overview (07/08/2020): Chronic, with panic attack Assessment & Plan (10/15/2021 9:11 AM PHARMACIST IN CHARGE OWNER): Not well controlled, patient continues to have episodes of panic attack; at this point as; phobia; may be related to new undiagnosed medical conditions Will start bupropion today, continue to use hydroxyzine 25 mg as needed Continue sertraline 200 mg daily patient referred to counseling for further evaluation and talk therapy Assessment & Plan (10/12/2021 2:44 PM PHARMACIST IN CHARGE OWNER): Stable, well controlled; continue sertraline 200 mg [...] on file Legal Sex Female 1:12 PM PHARMACIST IN CHARGE OWNER Gender Identity Not on file Sexual Orientation [...] 2000 Varicella Vaccines Completed 03/08/2012, 09/26/2001 Insurance [facility] [id number] [facility] [id number] IDPA [facility] Care Teams Seam Steamer Relationship Specialty Start Date End Date Sohail Garber MD [address] [place] [address] PCP - General Family Medicine 07/08/20
--- OUTSIDE RECORDS SUMMARY | 2025-09-05 08:37 | XMS_ITS | Patient Health Record ---
Author Organization [facility] As [employer] Address [address] [place] [address] Care Team Providers Care Grinder And Plater Name Role Phone Fanta Tyler Unavailable [phone] Reason For Referral No Information Medications Medication [...] ID Now COVID-19 Kit In Vitro *Reorder [facility] for eRx and Interaction Alerts* [...] Insured Coverage Start Date [facility] [address] [place] [address] [id number] ERICA SMART Child - Insured has Financial Responsibility
--- OUTSIDE RECORDS SUMMARY | 2025-09-05 08:37 | XMS_ITS | Clinical Summary ---
Author Organization [facility] Address [address] [place] [address] Care Team Providers Care Weigher And Charger Name Role Phone Vera Cornejo Primary Care Provider [phone] Allergies Active Allergy Reactions Criticality Noted Date [...] on file Legal Sex Female 10:19 AM HUMAN RESOURCES LEADER Gender Identity Not on file Sexual Orientation Not on file Last Filed Vital Signs Vital Sign Reading Time Taken Comments Blood Pressure 100/70 10/29/2021 8:21 AM HUMAN RESOURCES LEADER Pulse 87 10/29/2021 8:21 AM HUMAN RESOURCES LEADER Temperature 36.7 C (98 F) 10/29/2021 8:21 AM HUMAN RESOURCES LEADER Respiratory Rate 15 10/29/2021 8:21 AM HUMAN RESOURCES LEADER Oxygen Saturation 97% 10/29/2021 8:21 AM HUMAN RESOURCES LEADER Inhaled Oxygen Concentration - - Weight 145.2 kg (320 lb) 10/29/2021 8:21 AM HUMAN RESOURCES LEADER Height 190.5 cm (6' 3) 10/29/2021 8:21 AM HUMAN RESOURCES LEADER Body Mass Index 40 10/29/2021 8:21 AM HUMAN RESOURCES LEADER Plan of Treatment Health Maintenance Due Date [...] patient's age to complete this topic Insurance [employer] [facility] Care Teams Weigher And Charger Relationship Specialty [place] [address] [place] [address] PCP - General PHYSICIAN GANDY DANCER 10/29/21
--- OUTSIDE RECORDS SUMMARY | 2025-09-05 08:40 | XMS_ITS | Clinical Summary ---
Author Organization 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 on file Not on roby e Last Filed Vital Signs Vital Sign Reading Time Taken Comments Blood Pressure 120/78 10/13/2022 12:45 PM MEDICAL LABORATORY TECHNOLOGIST Pulse 75 10/13/2022 12:45 PM MEDICAL LABORATORY TECHNOLOGIST Temperature 36.4 C (97.6 F) 10/13/2022 11:46 AM MEDICAL LABORATORY TECHNOLOGIST Respiratory Rate 16 10/13/2022 11:46 AM MEDICAL LABORATORY TECHNOLOGIST Oxygen Saturation 100% 10/13/2022 12:45 PM MEDICAL LABORATORY TECHNOLOGIST Inhaled Oxygen Concentration - - Weight 122.5 kg (270 lb) 10/13/2022 11:46 AM MEDICAL LABORATORY TECHNOLOGIST Height 190.5 cm (6' 3) 10/13/2022 11:46 AM MEDICAL LABORATORY TECHNOLOGIST Body Mass Index 33.75 10/13/2022 11:46 AM MEDICAL LABORATORY TECHNOLOGIST Plan of Treatment Health Maintenance Due Date [...] Additional history exists TdaP Immunization Completed 03/08/2012 Varicella Immunization Completed 03/08/2012, 2000 Meningococcal Immunization (ACWY) Completed 03/27/2017, 03/08/2012 Rotavirus Immunization Aged Out No lo nger eligible based on patient's age to complete this topic Goals Goal Patient Goal Type Associated Problems Recent Progress Patient-Stated? Author Behavioral Health Behavioral Health On track(2019 7:36 PM CDT) Yes Digna Slaughter [facility] Note: Maisey reported: desires to cope, manage and/or discontinue panic attacks. Goal Reviewed with: patient Readiness to change: Thinking about making a change Department associated with goal: [facility] Steps to achieve goal: Manancyy to attend, at least twice monthly, counseling sessions. Maisey to identify, verbalize and process at least three contributing factors/triggers to panic attacks, ex: traumatic experiences. Maisey to identify and verbalize at least three actions/skills to prevent and/or cope with panic attacks. Antoinettey to put into action, at least one time weekly, for one month, an action/skill to prevent and or cope with panic attacks. Behavioral Health Behavioral Health On track(2019 7:36 PM CDT) Digna Mcclendon, [facility] Note: Flash reported desire to go back home and not be afraid I'm dying; (recent heart rate concern resulted in emergency room care and currently on heart monitor, staying with mother). Goal Reviewed with: patient Readiness to change: Thinking about making a change Department associated with goal: [facility] Steps to achieve goal: Flash will continue to follow through with medical recommendations and follow up care, ex: wearing heart monitor, appointments with rattlesnake farmer. Flash will verbalize and process thoughts and feelings regarding recent medical trauma and panic attacks to gain relief and build insight. Flash will learn and practice positive counter-thoughts, to replace cognitive distortions/errors in thinking. Medical Devices Implanted Type Area Farmworker Machine Device Identifier Shelf Expiration Date Model / Serial / Lot Hyprocure Sinus Tarsi Stent Size 06 Implanted:Qty: 1 on 12/04/2015 by Fabian Tucker DPM at [facility] Left: Foot 08/30/2020 [id number] / [id number] / [id number] Suture Wickes 3.5x12.1 Implanted:Qty: 1 on 12/04/2015 by Fabian Tucker DPM at [facility] Left: Foot 11/08/2018 [id number] / / [id number] Insurance MEDICAID [place] Member Subscriber Plan / Payer (Ef fective 2019-Present) Name:Flash Smart Relation to Subscriber:Self Name:Flash Smart Payer ID:[id number] Group ID:[id number] Type:Not on file Address: [address] Care Teams Surgical Endoscopist Relationship Specialty Start Date End Date Sohail [place] [address] PCP - General Family Medicine 08/23/20 Fabian Tucker DPM Podiatry 12/04/15
[2025-09-05 08:56] VITALS: BP 135/86; PULSE 87; RESP 18; TEMP 36.4; O2SAT 98
--- NOTE | 2025-09-05 08:58 | ED.URI ---
HPI - URI/Sore Throat General Chief Complaint: Upper Respiratory Infection Stated Complaint: sinue issues Time Seen by Provider: 09/05/25 08:58 Source: patient Mode of arrival: ambulatory Limitations: no limitations History of Present Illness HPI Narrative: 25-year-old female presents with complaint of cough, nasal congestion for 2-3 days. Afebrile. Patient states she woke up in the middle the night around 4:00 a.m. feeling short of breath. Patient taking daily antihistamine at, Severe cold and Sinus. Not improving symptoms. Reports exposure to pneumonia by her grandma and a cousin. All systems reviewed and negative except as noted above. Related Data Allergies Allergy/AdvReac Type Severity Reaction Status Date / Time No Known Drug Allergies Allergy Unknown Unknown Verified 09/05/25 08:52 [facility] Past Medical History Medical History Anxiety and depression Fx clavicle surgical repair GERD (gastroesophageal reflux disease) Surgical History Surgical History Hx of shoulder surgery Left S/P tendon repair left foot Family History Family History Father History of ETOH abuse Depression Mother History of ETOH abuse Depression Diabetes mellitus Sibling Depression Grandparent Diabetes mellitus Depression Grandparent History of ETOH abuse Depression Social History Social History Smoking status: Never smoker Alcohol intake: current Alcohol use details: social Substance use type: does not use Lack of Transportation: No Lack of Food: Never True Current Housing: I Have Housing Concerned About Future Housing: No Difficulty Paying Gas/Electric Bills: No Difficulty Paying for Meds: No Currently Unemployed: No Education: High School Diploma/GED Difficulty w/ Childcare or Family Care: No Living arrangements: with family Occupation/Education: occupation 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 There is no relevant family history pertinent to the presenting complaint. Exam Narrative: GENERAL: This is a well-nourished, well-developed patient, in no apparent distress. HEAD: normocephalic, atraumatic. EYES: PERRL. Sclera clear/white. Vision is grossly intact. EARS: External ears normal, auditory canals clear and without drainage, TMs normal without perforation. Hearing grossly intact. NOSE: External nose normal with Clear nasal drainage, swelling and erythema to bilateral nares THROAT: Mucous membranes moist, erythematous with postnasal drainage NECK: Neck supple, non-tender without lymphadenopathy, masses or thyromegaly. CARDIOVASCULAR: Regular rate and rhythm without murmurs, gallops, or rubs. RESPIRATORY: Clear to auscultation. Breath sounds equal bilaterally. No wheezes, rales, or rhonchi. SKIN: warm, Dry, intact with no suspicious lesions or rash, good texture and turgor. NEURO: awake, alert, and oriented to person, place and time. There were no obvious focal neurologic abnormalities. EXTREMITIES: No joint tenderness, effusion, or edema noted. Course Course Level of Care: Express Care Visit Vital Signs Vital signs: Vital Signs Temperature 36.4 C 09/05/25 08:56 Pulse Rate 87 09/05/25 08:56 Respiratory Rate 18 09/05/25 08:56 Blood Pressure 135/86 09/05/25 08:56 Pulse Oximetry 98 09/05/25 08:56 Oxygen Delivery Room Air 09/05/25 08:56 Temperature 36.4 C 09/05/25 08:56 Pulse Rate 87 09/05/25 08:56 Respiratory Rate 18 09/05/25 08:56 Blood Pressure 135/86 09/05/25 08:56 Pulse Oximetry 98 09/05/25 08:56 Oxygen Delivery Room Air 09/05/25 08:56 reviewed MDM - URI/Sore Throat MDM Narrative Medical decision making narrative: negative COVID, influenza and strep. Chest x-ray normal. Recommend [id number] medications to treat viral symptoms. Patient is alert, nontoxic. Differential Diagnosis Differential diagnosis: Likely upper respiratory infection, sinusitis, viral infection, bronchitis, influenza and pharyngitis Lab Data Labs: Lab Results 09/05/25 09/05/25 Range/Units 09:08 09:13 POC Influenza A Ag Negative (Negative) POC Influenza B Ag Negative (Negative) POC SARS CoV-2 Ag Negative (Negative) POC Grp A Strep Screen Negative (Negative) Imaging Data My impression: Agree with radiologist Radiologist's impression: EXAMINATION: XR chest 2V, 09/05/2025 9:05 HUMAN RESOURCES MGR HISTORY: cough, chest congestion, SOB COMPARISON: No comparisons available. Technique: 2 views obtained. Findings: The lungs are clear, no effusion. No pneumothorax. Heart is normal size. Mediastinal and hilar contours are within normal limits. Bony thorax no acute abnormality. Impression: No acute cardiopulmonary abnormality. Discharge Plan Discharge Clinical Impression: Viral upper respiratory tract infection with cough Patient Disposition: Home Condition: Stable Instructions: Upper Respiratory Infection (ED) Additional Instructions: Your strep, COVID and influenza test was negative today. your chest x-ray was normal. Your symptoms are viral and may last 10-14 days. Take medications as prescribed. take voqd-kyc-jyjpqqo pseudoephedrine as directed on packaging. Use an poyt-ikj-qxvzzxc nasal spray such as Flonase or Nasacort as directed on packaging. Drink at least 64 oz of water a day. See your doctor if not improving. Patient Language: German Prescriptions: New benzonatate 200 mg capsule 200 mg PO TID PRN (Reason: cough) Qty: 20 0RF methylprednisolone [Medrol (Gonzalez)] 4 mg tablets,dose pack See Rx Instructions PO .COMPLEX Qty: 21 0RF Rx Instructions: orally per package directions No Action Trulance 3 mg tablet See Rx Instructions .ROUTE .COMPLEX Qty: 90 1RF Dose Instruction: TAKE ONE (1) TABLET BY MOUTH DAILY Rx Instructions: TAKE ONE (1) TABLET BY MOUTH DAILY venlafaxine 75 mg capsule,extended release 24hr See Rx Instructions .ROUTE .COMPLEX Qty: 90 3RF Dose Instruction: TAKE ONE (1) CAPSULE BY MOUTH EACH MORNING Rx Instructions: TAKE ONE (1) CAPSULE BY MOUTH EACH MORNING bupropion HCl 300 mg tablet extended release 24 hr See Rx Instructions .ROUTE .COMPLEX Qty: 90 3RF Dose Instruction: TAKE ONE (1) TABLET BY MOUTH EACH MORNING Rx Instructions: TAKE ONE (1) TABLET BY MOUTH EACH MORNING Follow-up/Referrals: Carmen Max APRN [Primary Care Provider, Family Practice] Time of Disposition: 09:41
[2025-09-05 09:10] LABS: EDSTREPNEGPOS1 Negative (Negative)
[2025-09-05 09:15] LABS: EDCOVIDSCREEN Negative (Negative); EDINFLUASCREEN Negative (Negative); EDINFLUBSCREEN Negative (Negative)
== END 2025-09-05 09:49 | disposition home or self-care (01) ==
PROVIDERS: Emergency Provider Nurse Practitioner Family; PCP Nurse Practitioner Adult Health
DX: J06.9 Acute upper respiratory infection, unspecified (principal); R05.9 Cough, unspecified; Z20.822 Contact with and (suspected) exposure to COVID-19; K21.9 Gastro-esophageal reflux disease without esophagitis; F41.9 Anxiety disorder, unspecified; F32.A Depression, unspecified
CPT/HCPCS: 71046; 87081; 87426; 87804; 87880; 99213; G0463